=== PATIENT | female | born 1970 | race Caucasian/White ===

== ENCOUNTER → 2020-01-11 17:44 | Outpatient (CLI) | payer BC, SELFPAY ==
--- NOTE | ~2020-01-11 | MM_ITS ---
EXAMINATION: MM screening chelsy BI w tonja HISTORY: Screening mammogram TECHNIQUE: Craniocaudal and mediolateral oblique 3-D tomosynthesis images were obtained and synthetic 2-D images were generated. CAD analysis was submitted and interpreted. COMPARISON: 01/13/2017 diagnostic left digital mammogram and complete left breast ultrasound 11/29/2016 bilateral digital screening mammogram BREAST PARENCHYMAL COMPOSITION: There are scattered areas of fibroglandular density. FINDINGS: There is no evidence of suspicious mass, calcification, or architectural distortion to sugg est malignancy in either breast. There has been no suspicious interval change. IMPRESSION: 1. No mammographic evidence of malignancy. 2. Recommend routine screening mammography in one year. BI-RADS Category 1: Negative Reviewed, dictated and finalized at location A. R SAW OPERATOR
== END ==
PROVIDERS: PCP Family Medicine; Visit Provider Family Medicine
DX: Z12.31 Encounter for screening mammogram for malignant neoplasm of breast (principal)
CPT/HCPCS: 77063; 77067

== ENCOUNTER → 2020-01-14 11:43 | Outpatient (CLI) | payer BC, SELFPAY ==
--- NOTE | ~2020-01-14 | US_ITS ---
EXAMINATION: US pelvic complete w TV DATE: 01/14/2020 12:15 INDICATION: Enlarged uterus. TECHNIQUE: Multiple transabdominal and transvaginal sonographic images of the pelvis were obtained. COMPARISON: None. FINDINGS: TRANSABDOMINAL ULTRASOUND: The uterus measures 17.1 x 10.9 x 9.9 cm. There is no free fluid in the pelvis. TRANSVAGINAL ULTRASOUND: The endometrial complex measures 1.1 cm in thickness. There is a 8.9 x 10.3 x 9.6 cm heterogeneous is oechoic mass in the uterus. The right ovary measures 2.9 x 2.2 x 2.6 cm. The left ovary measures 2.4 x 1.7 x 1.8 cm. IMPRESSION: 1. 10.3 cm mass in the uterus, consistent with a fibroid. Reviewed, dictated and finalized at location A. ENSARY TECHNICIAN
== END ==
PROVIDERS: PCP Family Medicine; Visit Provider Family Medicine
DX: N85.2 Hypertrophy of uterus (principal)
CPT/HCPCS: 76830; 76856

== ENCOUNTER 2021-07-11 17:13 | Outpatient (CLI) | payer BC, SELFPAY ==
--- NOTE | ~2021-07-11 | XR_ITS ---
EXAMINATION: XR ribs RT 2V w CXR 2V DATE: 07/11/2021 17:31 INDICATION: Costochondral junction syndrome. TECHNIQUE: PA and lateral of the chest and 3 views of the right ribs were obtained. COMPARISON: None FINDINGS: No rib fractures identified. Lungs are clear with no focal airspace opacities, pulmonary edema, pleur al effusion or pneumothorax. Amplatz type ASD closure device projects over the heart. Cholecystectomy clips in right upper quadrant. IMPRESSION: 1. No rib fracture or acute cardiopulmonary disease. Reviewed, dictated and finalized at location A.
== END 2021-07-11 17:14 | disposition home or self-care (01) ==
LOC: ANHIMG 17:15
PROVIDERS: PCP Family Medicine; Visit Provider Family Medicine
DX: M94.0 Chondrocostal junction syndrome [Tietze] (principal)
CPT/HCPCS: 71046; 71100

== ENCOUNTER 2021-07-25 16:25 | Outpatient (CLI) | payer BC, SELFPAY ==
--- NOTE | ~2021-07-25 | MM_ITS ---
EXAMINATION: MM screening chelsy BI w tonja HISTORY: Screening mammogram, family history of breast cancer in her mother. TECHNIQUE: Craniocaudal and mediolateral oblique 3-D tomosynthesis images were obtained and synthetic 2-D images were generated. CAD analysis was submitted and interpreted. COMPARISON: 01/11/2020, 01/13/2017, 11/29/2016 BREAST PARENCHYMAL COMPOSITION: There are scattered areas of fibroglandular density. FINDINGS: There is no evidence of suspicious mass, calcification, or architectural distortion to sugg est malignancy in either breast. There has been no suspicious interval change. IMPRESSION: 1. No mammographic evidence of malignancy. 2. Recommend routine screening mammography in one year. BI-RADS Category 1: Negative Reviewed, dictated and finalized at location A.
== END 2021-07-25 16:26 | disposition home or self-care (01) ==
PROVIDERS: PCP Family Medicine; Visit Provider Family Medicine
DX: Z12.31 Encounter for screening mammogram for malignant neoplasm of breast (principal)
CPT/HCPCS: 77063; 77067

== ENCOUNTER 2022-01-28 00:27 | Day surgery (SDC) | payer OTHER, SELFPAY ==
[2022-01-15 13:53] VITALS: BMI 27.8
[2022-01-28 11:47] VITALS: BP 130/90; PULSE 79; RESP 18; TEMP 36.7; O2SAT 100; BMI 27.4
[2022-01-28] MEDS: LACTATED RINGERS 1,000 ML 150 ML IV CONT (11:58)
--- NOTE | 2022-01-28 12:24 | WPDANESEPPF ---
Anes - Initial Pre Proc Eval Procedure: Operation Date: 01/28/22 13:00 Proposed Procedures p Screening Colonoscopy - Wong Marmolejo MD Date/Time: 01/28/22 12:24 Surgeon: Wong Marmolejo MD Pre Op Diagnosis: neoplasm screening Patient Data Age: 51 Gender: F Height: 1.68 m Weight: 77.2 kg Last Vital Signs Temp 98.0 F 01/28/22 11:47 Pulse 79 01/28/22 11:47 Resp 18 01/28/22 11:47 BP 130/90 01/28/22 11:47 Pulse Ox 100 01/28/22 11:47 Allergies Allergy/AdvReac Type Severity Reaction Status Date / Time Penicillins Allergy Unknown UNKNOWN Verified 01/28/22 11:45 REACTION A CHILD Home Medications Medication Instructions Recorded Confirmed Type aspirin 81 mg tablet,delayed 81 mg PO DAILY 01/11/20 01/15/22 History release omeprazole 40 mg capsule,delayed 40 mg PO DAILY 05/09/20 01/15/22 History release Patient hx anesthesia problems: none Family hx anesthesia problems: none Results Review: All pre-operative results and documents have been reviewed as part of the pre-operative evaluation. [facility] Past Medical History Medical History (Updated 01/28/22 @ 12:25 by Freedom Deutsch MD) Bulky or enlarged uterus Cerebrovascular accident (CVA) occipital region; has some blind spot right eye Fibroid GERD without esophagitis History of cold sores Surgical History Surgical History (Updated 07/11/21 @ 09:44 by Jeana Wilburn MD) H/O: hysterectomy fibroid History of cholecystectomy Status post patent foramen ovale closure Family History Family History Father Family history of malignant neoplasm Patient's father is Sibling Family history of diabetes mellitus in first degree relative Diabetes mellitus Patient's sister is , Onset Age: 27 Mother Family history of malignant neoplasm of breast in first degree relative Family history of breast disorder Other Family history of allergic disorder Family history of cardiovascular disease Family history of malignant neoplasm of breast Social History Social History (Updated 09/06/21 @ 14:05 by Mayuri Davis [facility]) Alcohol intake: never Spiritual care concerns: No Anes - Eval Final PreProcedure Day of Procedure 01/28/22 12:24 Patient weight: obese Heart: regular rate and rhythm Lungs: clear to auscultation Airway: Mallampati scale class II Neurological: alert and oriented Last oral intake: >/= 8 hours ASA classification: II Emergent: no Anesthetic plan: proceed Anesthesia type and monitoring: general GIVS and standard monitoring Results Review: All pre-operative results and documents have been reviewed as part of the pre-operative evaluation. Informed Consent: The patient's anesthetic plan and its attendant risks and benefits were discussed with the patient/family/POA. Questions were solicited and answers provided to the satisfaction of the patient/family/POA.
--- NOTE | 2022-01-28 12:46 | PM.HPGS ---
History of Present Illness History of Present Illness Consent: Risks, benefits, and alternatives have been discussed and questions answered. Patient agrees to proceed with procedure. Chief complaint: neoplasm screening Narrative: Shankar Palomares is a 51 year old female here for first screening colonoscopy Review of Systems Constitutional: Constitutional: Denies headache(s) and Denies weakness Eyes: Eyes: Denies blurry vision ENT: Reports Normal hearing present, Denies headache(s) and Denies neck pain Cardiovascular: Cardiovascular: Denies chest pain and Denies dyspnea Respiratory: Respiratory: Denies dyspnea Gastrointestinal: Gastrointestinal: Reports no additional gastrointestinal complaints Genitourinary: Genitourinary: Denies dysuria Musculoskeletal: Musculoskeletal: Denies neck pain Integumentary/Breasts: Skin/Breast: Denies dry skin Neurologic: Reports Normal hearing present, Denies headache(s) and Denies weakness Psychiatric: Psychiatric: Denies anxiety Endocrine: Endocrine: Denies change in body appearance Hematologic/Lymphatic: Hematologic/Lymphatic: Denies easy bleeding Allergic/Immunologic: Allergic/Immunologic: Denies urticaria PMF Past Medical History Medical History (Updated 01/28/22 @ 12:46 by Wong Marmolejo MD) Bulky or enlarged uterus Cerebrovascular accident (CVA) occipital region; has some blind spot right eye Colon cancer screening Fibroid GERD without esophagitis History of cold sores Surgical History Surgical History (Updated 07/11/21 @ 09:44 by Jeana Wilburn MD) H/O: hysterectomy fibroid History of cholecystectomy Status post patent foramen ovale closure Family History Family History Father Family history of malignant neoplasm Patient's father is Sibling Family history of diabetes mellitus in first degree relative Diabetes mellitus Patient's sister is , Onset Age: 27 Mother Family history of malignant neoplasm of breast in first degree relative Family history of breast disorder Other Family history of allergic disorder Family history of cardiovascular disease Family history of malignant neoplasm of breast Social History Social History (Updated 09/06/21 @ 14:05 by Mayuri Davis [facility]) Alcohol intake: never Spiritual care concerns: No Meds Home Medications and Allergies Home Medications Medication Instructions Recorded Confirmed Type aspirin 81 mg tablet,delayed 81 mg PO DAILY 01/11/20 01/15/22 History release omeprazole 40 mg capsule,delayed 40 mg PO DAILY 05/09/20 01/15/22 History release Allergies Allergy/AdvReac Type Severity Reaction Status Date / Time Penicillins Allergy Unknown UNKNOWN Verified 01/28/22 11:45 REACTION A CHILD Vital Signs Vital Signs - 24 hr 01/28/22 11:47 Temperature 98.0 F Pulse Rate 79 Respiratory Rate 18 Blood Pressure 130/90 Pulse Oximetry 100 Exam Const: General: comfortable and no acute distress HENMT: General nose exam: Normal nares present Eyes: General: appearance normal, both eyes and all related structures Neck: Neck: no JVD Resp: Auscultation: clear to auscultation bilaterally Cardio: Rate: regular rate Rhythm: regular rhythm GI: Inspection: non-distended GI Palp: Yes Soft to palpation Skin: General skin exam: normal color Neuro: General: gait normal Speech: normal speech Extrem: General: normal to inspection Psych: Mental Status: mental status grossly normal Assessment and Plan Assessment and plan (1) Colon cancer screening: Code(s): Z12.11 - Encounter for screening for malignant neoplasm of colon Status: Acute Assessment and Plan: colonoscopy
[2022-01-28 13:04] VITALS: BP 116/72; PULSE 67; RESP 17; O2SAT 100
[2022-01-28 13:14] VITALS: BP 122/76; PULSE 57; RESP 14; O2SAT 100
[2022-01-28 13:24] VITALS: BP 116/80; PULSE 55; RESP 19; O2SAT 100
== END 2022-01-28 13:38 | disposition home or self-care (01) ==
PROVIDERS: PCP Family Medicine; Visit Provider Internal Medicine Gastroenterology
PROC: 0DJD8ZZ Inspection of Lower Intestinal Tract, Via Natural or Artificial Opening Endoscopic (ICD-10-PCS; CPT 45378; principal; 2022-01-28 13:00)
DX: Z12.11 Encounter for screening for malignant neoplasm of colon (principal); D12.0 Benign neoplasm of cecum; K63.5 Polyp of colon; K64.8 Other hemorrhoids; K21.9 Gastro-esophageal reflux disease without esophagitis; I69.398 Other sequelae of cerebral infarction; Z90.49 Acquired absence of other specified parts of digestive tract; Z79.82 Long term (current) use of aspirin
CPT/HCPCS: 45380; 45385; 88305; J2704; J7120

== ENCOUNTER 2022-09-04 11:23 | Outpatient (CLI) | payer OTHER, SELFPAY | END 2022-09-04 11:24 | disposition home or self-care (01) | LOC: ANHGOSHLAB 11:25 | PROVIDERS: PCP Family Medicine; Visit Provider Family Medicine | DX: E06.3 Autoimmune thyroiditis (principal); E66.3 Overweight; K21.00 Gastro-esophageal reflux disease with esophagitis, without bleeding; Z79.899 Other long term (current) drug therapy | CPT/HCPCS: 99199; 36415 ==

== ENCOUNTER 2023-03-21 08:41 | Outpatient (CLI) | payer OTHER, SELFPAY ==
--- NOTE | ~2023-03-21 | MM_ITS ---
EXAMINATION: MM screening chelsy BI w tonja HISTORY: Screening mammogram, family history of breast cancer in her mother. TECHNIQUE: Craniocaudal and mediolateral oblique 3-D tomosynthesis images were obtained and synthetic 2-D images were generated. CAD analysis was submitted and interpreted. COMPARISON: 07/25/2021, 01/11/2020, 01/13/2017, 11/29/2016 BREAST PARENCHYMAL COMPOSITION: There are scattered areas of fibroglandular density. FINDINGS: No suspicious mass, calcification, or architectural distortion are identified in either everton ast to suggest malignancy. There has been no suspicious interval change. IMPRESSION: 1. No mammographic evidence of malignancy. 2. Recommend routine screening mammography in one year. BI-RADS Category 1: Negative Reviewed, dictated and finalized at location A.
== END 2023-03-21 08:42 | disposition home or self-care (01) ==
PROVIDERS: PCP Family Medicine; Visit Provider Family Medicine
DX: Z12.31 Encounter for screening mammogram for malignant neoplasm of breast (principal)
CPT/HCPCS: 77063; 77067

== ENCOUNTER 2023-10-01 11:18 | Outpatient (CLI) | payer OTHER, SELFPAY ==
[2023-10-02 15:20] LABS: Kit Draw Collected
== END 2023-10-01 11:19 | disposition home or self-care (01) ==
LOC: ANHGOSHLAB 11:19
PROVIDERS: PCP Family Medicine; Visit Provider Family Medicine
DX: Z00.00 Encounter for general adult medical examination without abnormal findings (principal); Z79.899 Other long term (current) drug therapy
CPT/HCPCS: 36415

== ENCOUNTER 2024-10-14 09:51 | Outpatient (CLI) | payer OTHER, SELFPAY ==
[2024-10-15 14:55] LABS: Kit Draw Collected
== END 2024-10-14 09:52 | disposition home or self-care (01) ==
LOC: ANHGOSHLAB 09:53
PROVIDERS: PCP Family Medicine; Visit Provider Family Medicine
DX: E06.3 Autoimmune thyroiditis (principal); K21.00 Gastro-esophageal reflux disease with esophagitis, without bleeding; Z79.899 Other long term (current) drug therapy
CPT/HCPCS: 36415

== ENCOUNTER 2025-01-05 10:08 | Outpatient (CLI) | payer OTHER, SELFPAY ==
--- OUTSIDE RECORDS SUMMARY | 2025-01-05 11:13 | XMS_ITS | Referral Summary ---
Author Organization [facility] Address [address] [place] [address] Care Team Providers Care Fill Plant Operator Name Role Phone Jeana Wilburn MD Primary Care Provider [phone] Source Comments [facility],non-owned Affiliates and Associated Physician Practices is amultiple site organization consisting of ambulatory clinics and hospital sitesin [place] and [place]. This disclosure is being madepursuant to the Care Everywhere program and may not contain all information available regarding this patient. Last updated 18.[facility] Allergies Active Allergy Reactions Criticality Noted Date Comments Penicillins Urticaria High 08/08/2017 Medications * Be aware that medications may not be up to date on this document. Alwaysverify current medications with the patient. Medication Sig Dispensed Refills Start Date End Date Status aspirin EC (ECOTRIN) 81 MG tablet Take 81 mg by mouth once daily Active omeprazole (PRILOSEC) 40 MG capsule Take 40 mg by mouth daily before breakfast Active Active Problems Problem Noted Date Diagnosed Date Visual aura 10/14/2018 Migraine with visual aura 10/14/2018 Vision loss 10/03/2018 H/O ischemic left SPINNER FIXER stroke 07/13/2018 PFO (patent foramen ovale) 09/05/2017 S/P cholecystectomy 09/05/2017 Hemianopia 08/08/2017 Ischemic stroke 08/08/2017 Fibroid S/P hysterectomy Immunizations Name Administration Dates Next Due INFLUENZA VACCINE 10/10/2020 INFLUENZA VACCINE, CELL CULT URE, QUADR. (FLUCELVAX QUADRIVALENT; 6MO+) (CCIIV4) 09/16/2018 INFLUENZA VACCINE, QUADR. (F LUZONE; FLULAVAL; FLUARIX; AFLURIA QUADRIVALENT; 6MO+), 0.5 ML (IIV4) 10/09/2019,10/13/2016 Social History Tobacco Use Types Packs/Day Years Used Date Smoking Tobacco: Never Smokeless Tobacco: Never Alcohol Use Standard Drinks/Week Comments Yes 0 (1 standard drink = 0.6 oz pur e alcohol) Sex and Gender Information Value Date Recorded Sex Assigned at Not on file Gender Identity Not on file Sexual Orientation Not on file Last Filed Vital Signs Vital Sign Reading Time Taken Comments Blood Pressure 126/84 07/17/2020 1:18 PM CDT Pulse 61 06/01/2020 10:00 AM CDT Temperature 37.1 ??C (98.7 ??F) 06/01/2020 10:00 AM C DT Respiratory Rate 18 06/01/2020 10:00 AM CDT Oxygen Saturation 100% 06/01/2020 10:00 AM CDT Inhaled Oxygen Concentration - - Weight 74.8 kg (165 lb) 07/17/2020 1:18 PM CDT Height 167.6 cm (5' 6 ) 06/15/2020 4:17 PM CDT Body Mass Index 26.63 06/15/2020 4:17 PM CDT Plan of Treatment Not on file Procedures Procedure Name Priority Date/Time Associated Diagnosis Comments LIPID PROFILE STAT 10/04/2018 2:53 AM CONCRETE MIXING TRUCK DRIVER Vision loss BASIC METABOLIC PANEL (CALCIUM TOTAL) STAT 10/03/2018 7:43 PM CDT from Last 3 Months or Most Recently Relevant to Health Maintenance Results * LIPID PROFILE (10/04/2018 2:53 AM CONCRETE MIXING TRUCK DRIVER) Cholesterol Total 164 <200 mg/dL 10/04/2018 3:18 AM [facility] HDL 54 >40 mg/dL 10/04/2018 3:18 AM [facility] Comment: ATP III Classification of HDL Cholesterol: ? <40 mg/dL: ??Considered a major risk factor. ? >60 mg/dL: ??Considered a negative risk factor. ? LDL Calculated 94 <100 mg/dL 10/04/2018 3:18 AM [facility] Comment: ATP III Classification of LDL Cholesterol: ?<100 mg/dL: ??Optimal ? 100 - 129 mg/dL: ??Near Optimal/Above Optimal ? 130 - 159 mg/dL: ??Borderline High ? 160 - 189 mg/dL: ??High ?>190 mg/dL: ??Very High ? Triglycerides 82 <150 mg/dL 10/04/2018 3:18 AM [facility] Comment: ATP III Classification of Triglycerides: ?<150 mg/dL: ??Normal ? 150 - 199 mg/dL: ??Borderline High ? 200 - 400 mg/dL: ??High ?>500 mg/dL: ??Very High Blood BLOOD SPECIMEN / Unknown Venipuncture / Unknown 10/04/2018 2:53 AM CONCRETE MIXING TRUCK DRIVER 10/04/2018 2:56 AM CONCRETE MIXING TRUCK DRIVER Bulmaro Orantes MD LAB - CHEMISTRY O RDERABLES Performing Organization Address [facility]/State/[facility] Co de Phone Number [address] [phone] * (ABNORMAL) BASIC METABOLIC PANEL (CALCIUM TOTAL) (10/03/2018 7:43 PM CDT) BUN 16 7 - 26 mg/dL 10/03/2018 8:15 PM CDT [facility] Creatinine 1.0 0.6 - 1.2 mg/dL 10/03/2018 8:15 PM CDT [facility] Sodium 139 136 - 145 mmol/L 10/03/2018 8:15 PM CDT [facility] Potassium 3.6 3.5 - 4.5 mmol/L 10/03/2018 8:15 PM CDT [facility] Chloride 104 98 - 107 mmol/L 10/03/2018 8:15 PM [facility] CO2 25 22 - 29 mmol/L 10/03/2018 8:15 PM [facility] Glucose 88 70 - 115 mg/dL 10/03/2018 8:15 PM [facility] Calcium 9.1 8.4 - 10.2 mg/dL 10/03/2018 8:15 PM [facility] Anion Gap 14 8 - 18 10/03/2018 8:15 PM [facility] BUN/Creatinine Ratio 16 7 - 23 10/03/2018 8:15 PM [facility] Osmolality Calculated 289 270 - 300 mOsm/kg 10/03/2018 8:15 PM [facility] eGFR 59(L) >60 mL/min/1.7 3 m2 10/03/2018 8:15 PM [facility] Blood BLOOD SPECIMEN / Unknown Venipuncture / Unknown 10/03/2018 7:43 PM CDT 10/03/2018 7:50 PM CDT Marty Shultz MD LAB - CHEMISTRY INESSA SERRANO [facility] Organization Address City/State/[facility] Co de Phone Number [facility] [address] [phone] from Last 3 Months or Most Recently Relevant to Health Maintenance Advance Directives * Full Code (Latest Code Status on File) Date Activated Date Inactivated Comments 10/04/2018 2:13 AM 10/04/2018 12:33 PM * Full Code Date Activated Date Inactivated Comments 10/03/2018 9:27 PM 10/04/2018 2:13 AM Care Teams Fill Plant Operator Relationship Specialty Start Date End Date Jeana Wilburn MD [address] [place] [address] PCP - General 03/19/18
--- OUTSIDE RECORDS SUMMARY | 2025-01-05 11:14 | XMS_ITS | Encounter Summary ---
Author Organization [facility] Address [address] [place] [address] Phone Care Team Providers Care Dispatcher Maintenance Name Role Phone Jeana Wilburn MD Primary Care Provider + Encounter Details Date Type Department Care Team (Late st Contact Info) Description 10/30/2018 Ophth Exam [facility] Ophthalmology [address] [place] [address] 1[address] [place] [id number] Radha Benítez MD [address] [place], [place] [id number] Social History Tobacco Use Types Packs/Day Years Used Date Smoking Tobacco: Never Assessed Comments Unknown Sex and Gender Information Value Date Recorded Sex Assigned at Not on file Legal Sex Female 3:31 PM FIBERGLASS AUTO BODY REPAIRER Gender Identity Female 10/10/2022 10:08 AM FIBERGLASS AUTO BODY REPAIRER Sexual Orientation Straight 10/10/2022 10 :08 AM FIBERGLASS AUTO BODY REPAIRER documented as of this encounter Plan of Treatment Not on file documented as of this encounter Visit Diagnoses Not on filedocumented in this encounter Eye Exam Visual Acuity (Snellen - Linear) Right eye Left eye Near cc 20/20 20/20 Tonometry (Tonopen, 5:14 PM) Right eye Left eye Pressure 15 16 Pupils Dark Light APD Right eye 4 2 None Left eye 4 2 None Visual Head Right eye Left eye Full Full Unreliable and inconsistent testing, tested multiple times, full grossly Extraocular Movement Right eye Left eye Full Full Neuro/Psych Oriented x3: Yes Mood/Affect: Normal Dilation Both eyes: 1.0% Mydriacyl, 2 .5% Phenylephrine, 1.0% Cyclogyl @ 5:15 PM External Exam Right eye Left eye External Normal Normal Slit Lamp Exam Right eye Left eye Lids/Lashes Normal Normal Conjunctiva/Sclera White and quiet White and mariusz et Cornea Clear Clear Anterior Chamber Deep and quiet Deep and quiet Iris Round and reactive Round and bob ctive Lens Clear Clear Vitreous Normal Normal Fundus Exam Right eye Left eye Disc Normal Normal C/D Ratio 0.15 0.15 Macula Normal Normal Vessels Normal Normal Periphery Normal Normal Care Teams Dispatcher Maintenance Relationship Specialty Start Date End Date Jeana Wilburn MD PCP - General 12/10/17 documented as of this encounter
--- OUTSIDE RECORDS SUMMARY | 2025-01-05 11:14 | XMS_ITS | Clinical Summary ---
Author Organization [facility] Address [address] [place] [address] Care Team Providers Care Rough Rib Grader Name Role Phone Jeana Wilburn MD Primary Care Provider + Allergies Active Allergy Reactions Criticality Noted Date Comments Penicillins Urticaria High 08/08/2017 Medications aspirin 81 mg chewable tablet Take 81 mg by mouth. 7 Active omeprazole (PriLOSEC) 20 mg capsule Take 20 mg by mouth. Active mefloquine (LARIAM) 250 mg tablet TAKE ONE TABLET BY MOUTH ON THE SAME DAY EACH WEEK. TO START ONE WEEK BEFORE EXPOSURE, DURING TIME IN AREA, AND THEN FOR FOUR WEEKS AFTER LEAVING 2 Active fluticasone propionate (FLONASE) 50 mcg/actuation nasal spray Administer 1 spray into each nostril daily Active Active Problems Problem Noted Date Diagnosed Date Gastro-esophageal reflux dis ease with esophagitis, without bleeding 10/11/2022 Overview (10/11/2022): Added automatically from request for surgery [id number] Surgical History Surgery Date Site/Laterality Comments HYSTERECTOMY 12/01/2019 - 11/30/2020 CHOLECYSTECTOMY 12/01/2016 - 11/30/2017 PATENT FORAMEN OVALE CLOSURE 12/01/2016 - 11/30/2017 COLONOSCOPY POLYPECTOMY Medical History Medical History Date Comments Stroke (HCC) GERD (gastroesophageal reflux disease) Migraines Fibroids PFO with atrial septal aneurysm 2017 Sleep apnea Cholelithiasis Colon polyp Dysphagia Septal defect, heart Hypothyroidism Family History Medical History Relation Name Comments Leukemia Father Esophageal cancer Father's Brother Breast cancer Mother Diabetes Sister Relation Name Status Comments Father Father's Brother Mother Sister Social History Tobacco Use Types Packs/Day Years Used Date Smoking Tobacco: Never Tobacco Cessation:Counseling Given: Not Answered AUDIT-C Answer Date Recorded Q1: How often do you have a drink containing alc ohol? Never 10/11/2022 Average Number of Drinks Not on file 022 Frequency of Binge Drinking Not on file 10/01 Personal Safety Answer Date Recorded Getting School Help Needed Denies 11/14 Comments No Sex and Gender Information Value Date Recorded Sex Assigned at Not on file Legal Sex Female 3:31 PM LOSS PREVENTION ANALYST Gender Identity Female 10/10/2022 10:08 AM LOSS PREVENTION ANALYST Sexual Orientation Straight 10/10/2022 10 :08 AM LOSS PREVENTION ANALYST Obstetrics History Last Filed Vital Signs Vital Sign Reading Time Taken Comments Blood Pressure 124/81 12/05/2022 3:12 PM LOSS PREVENTION ANALYST Pulse 63 12/05/2022 3:12 PM LOSS PREVENTION ANALYST Temperature 36.3 ??C (97.3 ??F) 12/05/2022 1:47 PM CS T Respiratory Rate 17 12/05/2022 3:12 PM LOSS PREVENTION ANALYST Oxygen Saturation 100% 12/05/2022 3:12 PM LOSS PREVENTION ANALYST Inhaled Oxygen Concentration - - Weight 83.5 kg (184 lb) 12/05/2022 1:47 PM LOSS PREVENTION ANALYST Height 167.6 cm (5' 6 ) 12/05/2022 1:47 PM LOSS PREVENTION ANALYST Body Mass Index 29.7 12/05/2022 1:47 PM LOSS PREVENTION ANALYST Plan of Treatment Health Maintenance Due Date Last Done Comments Breast Cancer Screening-Mammogram 1971 Colon Cancer Screening-Colonoscopy 1971 Depression Screening 1971 Hepatitis C Screening 1971 DTaP/Tdap/Td Vaccine (1 - Tdap) 1982 Hepatitis B Screening 1989 Regular Well Visit/Exam 18-64 1989 Zoster Vaccine (1 of 2) 2021 Covid-19 Vaccine ( season) 2024 09/24/2021, 01/02/2021, 12/05/2020 Influenza Vaccine (#1) 2024 , 10/10/2020, 10/09/2019, Additional history exists Pneumococcal vaccine <65 Aged Out No longer eligible based on patient's age to complete this topic Insurance [facility] HEALTH BENEFIT PLAN [facility] HEALTH [employer]EFIT PLAN Advance Directives For more information, please contact: [phone] * Full Code (Latest Code Status on File) Date Activated Date Inactivated Comments 12/05/2022 1:36 PM 12/05/2022 7:25 PM Care Teams Rough Rib Grader Relationship Specialty Start Date End Date Jeana Wilburn MD PCP - General 12/10/17
--- OUTSIDE RECORDS SUMMARY | 2025-01-05 11:14 | XMS_ITS | Clinical Summary ---
Author Organization [facility] Address [address] [place] [id number] Care Team Providers Care Public Records Researcher Name Role Phone Unavailable Primary Care Provider Unavailabl e Immunizations Name Administration Dates Next Due MODERNA COVID-19 (12+) MRNA, LNP-S, PF, 100 MCG/ 0.5 ML DOSE 01/02/2021,12/05/2020 Social History Tobacco Use Types Packs/Day Years Used Date Smoking Tobacco: Never Assessed Comments Unknown Sex and Gender Information Value Date Recorded Sex Assigned at Not on file Legal Sex Female 3:16 PM [employer] Gender Identity Not on file Sexual Orientation Not on file Plan of Treatment Health Maintenance Due Date Last Done Comments Cervical Cancer Screening Pa p Smear (Age 30 to 64) Every 3 Years 1971 Colorectal Cancer Screening Colonoscopy (10 Years) 1971 Annual Physical 1974 Hepatitis C 1989 Hepatitis B Vaccines (1 of 3 - 19+ 3-dose series) 1990 Cervical Cancer Screening Pa p with HPV Testing (Age 30 to 64) Every 5 Years 2001 Cervical Cancer Screening wi th HPV 2001 Mammogram Screening 2011 Zoster Vaccines (1 of 2) 2021 COVID-19 Vaccine (2023-2 5 season) 2024 01/02/2021, 12/05/2020 Influenza Adult (#1) 2024 10/10/2020, 09/16/2018 DTaP, Tdap and Td Vaccines ( 2 - Tdap) 11/06/2030 11/06/2020 Meningococcal B Vaccine Aged Out No l onger eligible based on patient's age to complete this topic Meningococcal Vaccine Aged Out No maryse griselda eligible based on patient's age to complete this topic Pneumococcal Vaccine: Pediatrics (0 to 5 Years) and At-Risk Patients (6 to 64 Years) Aged Out No longer eligible b ased on patient's age to complete this topic RSV Immunizations Under 20 Months Aged Out No longer eligible b ased on patient's age to complete this topic
--- OUTSIDE RECORDS SUMMARY | 2025-01-05 11:14 | XMS_ITS | Patient Health Summary ---
Author Organization [facility] Address [address] [place] [address] Care Team Providers Care Tree Faller Name Role Phone Jeana Wilburn MD Primary Care Provider [phone] Note from [facility],non-owned Affiliates and Associated Physician Practices is amultiple site organization consisting of ambulatory clinics and hospital sitesin [place], [place], [place] and [place]. This disclosure is being madepursuant to the Care Everywhere program and may not contain all information available regarding this patient. Last updated 18.[facility] Allergies * Penicillins(Urticaria) -High Criticality Medications * Be aware that medications may not be up to date on this document. Alwaysverify current medications with the patient. * aspirin EC (ECOTRIN) 81 MG tablet Take 81 mg by mouth once daily * omeprazole (PRILOSEC) 40 MG capsule Take 40 mg by mouth daily before breakfast Active Problems Problem Noted Date Diagnosed Date Visual aura 10/14/2018 Migraine with visual aura 10/14/2018 Vision loss 10/03/2018 H/O ischemic left COMMERCIAL CREDIT HEAD stroke 07/13/2018 PFO (patent foramen ovale) 09/05/2017 S/P cholecystectomy 09/05/2017 Hemianopia 08/08/2017 Ischemic stroke 08/08/2017 Fibroid S/P hysterectomy Immunizations * INFLUENZA VACCINE(Given 10/10/2020) * INFLUENZA VACCINE, CELL CULTURE, QUADR. (FLUCELVAX QUADRIVALENT; 6MO+) (CCIIV4)(Given 09/16/2018) * INFLUENZA VACCINE, QUADR. (FLUZONE; FLULAVAL; FLUARIX; AFLURIA QUADRIVALENT; 6MO+), 0.5 ML (IIV4)(Given 10/09/2019, 10/13/2016) Social History Tobacco Use Types Packs/Day Years [...] Mass Index 26.63 06/15/2020 4:17 PM CDT Procedures * APHERESIS/TRANSFUSION ORDER(Performed 06/05/2020) * CARDIAC RHYTHM STRIP ORDER(Performed 06/05/2020) * PATHOLOGY TISSUE EXAM (STL)(Performed 05/31/2020) Performed for Diagnosis unknown * ENDOTRACHEAL TUBE NOTE(Performed 05/31/2020) * LAPAROSCOPIC TOTAL HYSTERECTOMY (TLH)(Performed 05/31/2020) Performed for Diagnosis unknown * HCG URINE QUAL POCT NOTIFICATION(Performed 05/31/2020) Performed for Preop examination * BLOOD TYPE VERIFICATION(Performed 05/31/2020) * HCG URINE QUALITATIVE - POCT (IP) INTERFACED(Performed 05/31/2020) * TYPE + SCREEN PANEL(Performed 05/29/2020) Performed for Pre-op testing * CBC W AUTO DIFFERENTIAL(Performed 05/29/2020) Performed for Pre-op testing * SARS-COV-2 (COVID-19) IN HOUSE(Performed 05/29/2020) Performed for Pre-op testing * OPH VISUAL FIELD TEST SLU(Performed 09/08/2019) Performed for H/O ischemic left COMMERCIAL CREDIT HEAD stroke * OPH VISUAL FIELD TEST SLU(Performed 03/05/2019) Performed for H/O ischemic left COMMERCIAL CREDIT HEAD stroke * OPH OCT TEST [facility]U(Performed 10/07/2018) Performed for Hemianopia, homonymous, right * OPH VISUAL FIELD TEST SLU(Performed 10/07/2018) Performed for Hemianopia, homonymous, right * MRI BRAIN WO CONTRAST(Performed 10/04/2018) Performed for Vision loss * LIPID PROFILE(Performed 10/04/2018) Performed for Vision loss * PT EVAL AND TREAT(Performed 10/04/2018) Performed for Vision loss * OT EVAL AND TREAT(Performed 10/04/2018) Performed for Vision loss * HCG URINE QUALITATIVE - POINT OF CARE(Performed 10/03/2018) * HEMOGLOBIN A1C(Performed 10/03/2018) Performed for Vision loss * BASIC METABOLIC PANEL (CALCIUM TOTAL)(Performed 10/03/2018) * CBC W AUTO DIFFERENTIAL(Performed 10/03/2018) * CT HEAD WO CONTRAST(Performed 10/03/2018) Performed for Vision loss * LUPUS ANTICOAGULANT PANEL W RFLX(Performed 04/09/2018) Performed for Ischemic stroke (HCC) * CARDIOLIPIN ANTIBODY IGG/IGM PANEL(Performed 04/09/2018) Performed for Ischemic stroke (HCC) * ECHO 2D ONLY WO COLOR OR DOPPLER(Performed 11/20/2017) * CCL PFO CLOSURE(Performed 10/09/2017) * ECHO LIMITED OR FOLLOWUP(Performed 10/09/2017) * EKG 12-LEAD(Performed 10/09/2017) * BASIC METABOLIC PANEL (CALCIUM TOTAL)(Performed 09/29/2017) * PT-INR SLH(Performed 09/29/2017) * CBC W AUTO DIFFERENTIAL(Performed 09/29/2017) * CBC W AUTO DIFFERENTIAL(Performed 09/29/2017) * EVENT MONITOR(Performed 09/26/2017) * PHOSPHORUS BLOOD(Performed 08/11/2017) * MAGNESIUM BLOOD(Performed 08/11/2017) * BASIC METABOLIC PANEL (CALCIUM TOTAL)(Performed 08/11/2017) * PHOSPHORUS BLOOD(Performed 08/10/2017) * MAGNESIUM BLOOD(Performed 08/10/2017) * BASIC METABOLIC PANEL (CALCIUM TOTAL)(Performed 08/10/2017) * PROTHROMBIN [id number] PANEL(Performed 08/09/2017) * FACTOR V LEIDEN MUTATION PANEL(Performed 08/09/2017) * PT-INR SLH(Performed 08/09/2017) * PTT SLH(Performed 08/09/2017) * PROTEIN S ANTIGEN(Performed 08/09/2017) * PROTEIN C ANTIGEN(Performed 08/09/2017) * ANTITHROMBIN III ANTIGEN(Performed 08/09/2017) * T4 FREE(Performed 08/09/2017) * TSH(Performed 08/09/2017) * CK + CKMB PANEL(Performed 08/09/2017) * TROPONIN I(Performed 08/09/2017) * BASIC METABOLIC PANEL (CALCIUM TOTAL)(Performed 08/09/2017) * PHOSPHORUS BLOOD(Performed 08/09/2017) * MAGNESIUM BLOOD(Performed 08/09/2017) * CBC W/O DIFFERENTIAL(Performed 08/09/2017) * HEMOGLOBIN A1C(Performed 08/08/2017) * CK + CKMB PANEL(Performed 08/08/2017) * TROPONIN I(Performed 08/08/2017) * LIPID PROFILE(Performed 08/08/2017) * PHOSPHORUS BLOOD(Performed 08/08/2017) * MAGNESIUM BLOOD(Performed 08/08/2017) * MRI BRAIN WWO CONTRAST(Performed 08/08/2017) * CT ANGIO BRAIN AND NECK(Performed 08/08/2017) * PT-INR SLH(Performed 08/08/2017) * PTT SLH(Performed 08/08/2017) * CT HEAD WO CONTRAST(Performed 08/08/2017) * ERYTHROCYTE SEDIMENTATION RATE(Performed 08/08/2017) * C-REACTIVE PROTEIN(Performed 08/08/2017) * BASIC METABOLIC PANEL (CALCIUM TOTAL)(Performed 08/08/2017) * CBC W AUTO DIFFERENTIAL(Performed 08/08/2017) * CBC W AUTO DIFFERENTIAL(Performed 08/08/2017) * ECHO COMPLETE(Performed 08/08/2017) * EKG 12-LEAD(Performed 08/08/2017) * LIPID PROFILE(Performed 06/02/2017) * BASIC METABOLIC PANEL (CALCIUM TOTAL)(Performed 06/02/2017) Results * APHERESIS/TRANSFUSION ORDER (06/05/2020 1:09 PM CDT) Narrative 06/05/2020 1:09 PM CDT Ordered by an unspecified provider. Scanned Document NURSING - VITAL SIGN S AND ASSESSMENT * CARDIAC RHYTHM STRIP ORDER (06/05/2020 1:09 PM CDT) Narrative 06/05/2020 1:09 PM CDT Ordered by an unspecified provider. Scanned Document CARDIAC SERVICES ORD ERABLES * GROSS + MICRO EXAM (STL) (05/31/2020 2:36 PM CDT) Case Report Surgical Pathology Report ? Case: [id number] ? Authorizing Provider: ??Alicia Winchester, Stacy: ? 05/31/2020 02:36 PM ? MD ? Ordering Location: ? [facility] ? Received: ?05/31/2020 03:29 PM ? Pathologist: ? Aminta Dueñas MD ? Specimens: ?? A) - Uterus w Tubes, uterus, cervix, bilateral tubes ? B) - Ligament, left uterosacral ligament ? 06/06/2020 2:00 PM [facility] Final Diagnosis Uterus and bilateral Fallopian tubes, hysterectomy and salpingectomy (A) - Secretory endometrium - Leiomyomata (largest 2.5 cm) - Cervix with no histopathologic abnormality - Bilateral Fallopian tubes with focal acute inflammation Peritoneum, left uterosacral ligament, biopsy (B) - Endometriosis 06/06/2020 2:00 PM [facility] Clinical History The patient is a 49-year-old woman with no clinical history provided. Operative procedure: hysterectomy with bilateral salpingectomy, morcellation. 06/06/2020 2:00 PM [facility] Gross Description The specimen is received in two containers fixed in formalin for gross and microscopic examination. Each container is labeled with the patient's name, Shankar Palomares. Specimen A, uterus, cervix, bilateral tubes, consists of a 910 g, morcellated uterus (21.5 x 13.5 x 8.0 cm). The cervix measures 4.5 x 3.5 cm. The ectocervix is white, smooth, and glistening. The cervical os is slit like and measures 1.5 cm. A portion of the endometrial cavity is identified. The endometrium measures 0.1 cm. There are several areas of bulging, whorled tissue potentially representing leiomyomata, ranging in greatest dimension from 0.9 to 2.5 cm. The specimen is sectioned, revealing no areas of hemorrhage or necrosis. Also received in the same container are two unoriented fallopian tubes measuring 4.0 x 1.0 cm and 3.5 x 0.5 cm respectively. The first fallopian tube has a 0.4 cm cyst. Sections are submitted as follows: A1, A2 - cervix A3 - endomyometrium A4-A5 - leiomyomata A6 - fallopian tube with cyst A7 - fallopian tube Specimen B, ligament, consists of a 1.2 x 0.4 x 0.2 cm portion of fibrous tissue submitted in toto as cassette B1. Luna 06/06/2020 2:00 PM [facility] Microscopic Description Microscopic examination substantiates the above diagnosis. 06/06/2020 2:00 PM CDT [facility] Disclaimer All histochemical and/or immunohistochemical results are interpreted with controls that demonstrate appropriate staining reactions before reporting results. Note on use of immunocytochemistry reagents: This test was developed and its performance characteristic determined by [facility], Department of Laboratory Medicine. It has not been cleared or approved by the U.S. Food and Drug Administration (FDA). The FDA has determined that such clearance or approval is not necessary. The test is used for clinical purpose. It should not be regarded as investigational or for research. This laboratory is certified to perform high complexity testing. The performance characteristics of the IHC/TODD assays have been validated on formalin-fixed paraffin embedded tissues only. The assays have not been validated on decalcified tissues. Results should be interpreted with caution. 06/06/2020 2:00 PM CDT [facility] Embedded Images 06/06/2020 2:00 PM CDT [facility] Pathology/Cytology UTERUS AND FALLOPIAN TUBES, CS / Unknown 05/31/2020 2:36 PM CDT 05/31/2020 3:29 PM CDT Comment:Pre-op diagnosis: Diagnosis unknown [R69] Miscellaneous samples (specimen) ENTIRE LIGAMENT / Unknown 05/31/2020 3:08 PM CDT 05/31/2020 3:29 PM CDT Comment:Pre-op diagnosis: Diagnosis unknown [R69] Alicia Winchester MD LAB - PATHOL OGY/CYTOLOGY ORDERABLES Performing Organization Address [facility]/State/[facility] Co de Phone Number [facility] [address] [place] [address] * ETT LINE PERFORMABLE (05/31/2020 11:31 AM CDT) Narrative Saturnino Nash MD - 05/31/2020 11:31 AM CDT Morales Parikh APRN-RADHA ? 05/31/2020 11:31 AM Endotracheal Tube Placement: ? Patient Location: OR. Intubation Event Date/Time: ??05/31/2020 11:15 AM Procedure: intubation ([id number]). Procedure Section: ?? Sedation: IV sedation. Indications for Airway Management: ??airway protection Induction: standard IV Patient Position: ??sniffing Mask Ventilation: easy. Blade Type: Otis Blade Size: 3 Laryngoscopy View: grade 2 (partial cords) Tube: endotracheal tube Placement: oral Tube type: cuff - inflated Tube Size (FR): 7 Depth of Insertion (CM): 19 Measured From: gums Cuff volume (mL): ??6 Cuff Inflated With: air Number of Attempts: 1. Placement Verified By: direct visualization, bilateral breath sounds, chest auscultation, CO2 monitor and CO2 detector Tube secured with: ??adhesive tape. Difficult Airway? ??No. Procedure Start Time: 05/31/2020 11:15 AM. Staff Section ?? Anesthesia Provider: Morales Parikh APRN-CRNA, Performed the procedure Saturnino Nash MD GENERAL ANESTHESIA ORDERABLES * HCG URINE QUAL POCT NOTIFICATION (05/31/2020 10:30 AM CDT) Comment Notification Label Only - See Separate Report 05/31/2020 10:30 AM CDT [facility] Urine URINE / Unknown 0 9:14 AM CDT Saturnino Nash MD LAB - URINALYSIS O RDERABLES Performing Organization Address City/[facility]/ZIP Co de Phone Number [facility] [address] [place] [address] * BLOOD TYPE VERIFICATION (05/31/2020 9:43 AM CDT) ABO Rh O POS 05/31/2020 10:52 AM CDT [facility] Blood Bank BLOOD SPECIMEN / Unknown Venipuncture / Unknown 05/31/2020 9:43 AM CDT 05/31/2020 10:23 AM CDT Alicia Winchester MD LAB - BLOOD BANK ORDERABLES Performing Organization Address [facility]/ZIP Co de Phone Number [facility] [address] [place] [address] * HCG URINE QUALITATIVE - POCT (IP) INTERFACED (05/31/2020 9:29 AM CDT) HCG Qual Urine Negative Negative 05/31/2020 9:35 AM CDT [facility] Urine URINE / Unknown 05/31/2020 9 :29 AM CDT 05/31/2020 9:35 AM CDT Alicia Winchester MD LAB - POINT OF CARE ORDERABLES Performing Organization Address [facility]/ZIP Co de Phone Number [facility] [address] [place] [address] * SARS-COV-2 (COVID-19) IN HOUSE (05/29/2020 7:12 AM CDT) Pathologist [facility] [place] COVID-19 PCR Not detected Not detected, Invalid 05/29/2020 4:31 PM CDT [facility] Microbiology SPECIMEN FROM NASOPHARYNGEAL STRUCTURE / Unknown Collection / Unknown 05/29/2020 7:12 AM CDT 05/29/2020 7:35 AM CDT Narrative [facility] - 05/29/2020 4:31 PM CDT This nucleic acid amplification assay performance was validated by [facility]. This test has been authorized by the Food and Drug administration (FDA)under an Emergency??Use Authorization (EUA). This test has been validated in accordance with the FDA's guidance document Policy for Diagnostic Testing in Laboratories Certified to perform High Complexity Testing under CLIA prior to Emergency Use Authorization for Coronavirus Disease-2019 during the Public Health Emergency issued on January 29, 2020. FDA independent review of this validation is pending. This test is only authorized for the duration of time the declaration that circumstances exist justifying the authorization of emergency use of in vitro diagnostic tests for detection of SARS-CoV-2 virus and/or diagnosis of COVID-19 infection under section 564(b)(1) of the Act, 21 U.S.C 360bbb-3 (b)(1), unless the authorization is terminated or revoked sooner. Alicia Winchester MD LAB - MICROB IOLOGY ORDERABLES Performing Organization Address City/[facility]/ZIP Co de Phone Number [facility] [address] [place] [address], [facility] [phone] * TYPE + SCREEN PANEL (05/29/2020 7:12 AM CDT) Pathologist [facility] [place] ABO Rh O POS 05/29/2020 8:17 AM CDT [facility] Comment:No history; collect retype. Antibody Screen NEG 0 8:17 AM CDT [facility] Blood Bank BLOOD SPECIMEN / Unknown Venipuncture / Unknown 05/29/2020 7:12 AM CDT 05/29/2020 7:34 AM CDT Alicia Winchester MD LAB - BLOOD BANK ORDERABLES [facility] [address] [place] [address], [facility] [phone] * CBC W AUTO DIFFERENTIAL (05/29/2020 7:12 AM CDT) Only the most recent of6 resultswithin the time period is included. Pathologist [facility] [place] WBC 7.8 4.4 - 10.7 x10E9/L 05/29/2020 7:45 AM CDT [facility] WBC Corrected 05/29/2020 7:45 AM CDT [facility] RBC 4.58 3.80 - 5.20 x10E12/L 05/29/2020 7:45 AM CDT [facility] Hemoglobin 14.0 12.0 - 15.6 gm/dL 05/29/2020 7:45 AM T [facility] Hematocrit 42.5 35.9 - 45.5 % 05/29/2020 7:45 AM T [facility] MCV 92.8 80.7 - 98.3 fl 05/29/2020 7:45 AM CDT [facility] MCH 30.6 26.7 - 34.0 pg 05/29/2020 7:45 AM CDT [facility] MCHC 32.9 30.8 - 35.9 gm/dL 05/29/2020 7:45 AM T [facility] Platelet Count 259 153 - 416 x10E9/L 05/29/2020 7:45 AM T [facility] RDW-CV 12.6 12.1 - 14.9 % 05/29/2020 7:45 AM CDT [facility] MPV 11.4 9.4 - 12.9 fl 05/29/2020 7:45 AM CDT [facility] Neutrophils % 54.1 44.0 - 73.0 % 05/29/2020 7:45 AM CDT [facility] Lymphocytes % 35.2 20.0 - 43.0 % 05/29/2020 7:45 AM CDT [facility] Monocytes % 7.6 5.0 - 13.0 % 05/29/2020 7:45 AM CDT [facility] Eosinophils % 1.9 0.0 - 6.0 % 05/29/2020 7:45 AM CDT [facility] Basophils % 0.9 0.0 - 2.0 % 05/29/2020 7:45 AM CDT [facility] Immature Granulocytes 0.3 0 - 1 % 05/29/2020 7:45 AM CDT [facility] Neutrophil Absolute 4.21 2.01 - 7.14 x10E9/L 05/29/2020 7:45 AM CDT [facility] Lymphocytes Absolute 2.74 1.07 - 3.94 x10E9/L 05/29/2020 7:45 AM CDT [facility] Monocytes Absolute 0.59 0.26 - 1.07 x10E9/L 05/29/2020 7:45 AM CDT [facility] Eosinophils Absolute 0.15 0 - 0.47 x10E9/L 05/29/2020 7:45 AM CDT [facility] Basophils Absolute 0.07 0 - 0.08 x10E9/L 05/29/2020 7:45 AM CDT [facility] Immature Granulocytes Absolute 0.02 0.00 - 0.06 x10E9/L 05/29/2020 7:45 AM CDT [facility] nRBC Auto 0 /100 WBC 05/29/2020 7:45 AM CDT [facility] Blood BLOOD SPECIMEN / Unknown Venipuncture / Unknown 05/29/2020 7:12 AM CDT 05/29/2020 7:34 AM CDT Alicia Winchester MD LAB - HEMATO LOGY ORDERABLES [facility] [address] [place] [address] * Visual Head (09/08/2019 11:26 AM CDT) Anatomical Region Laterality Modality Other 09/08/2019 11:2 6 AM CDT Maco I White OD OPHTHALMOLOGY SERVIC ES ORDERABLES * Visual Head (03/05/2019 8:49 AM CDT) Anatomical Region Laterality Modality Other 03/05/2019 8:49 AM CDT Maco I White OD OPHTHALMOLOGY SERVIC ES ORDERABLES * OCT (10/07/2018 12:04 PM SCOUT SNIPER) Anatomical Region Laterality Modality Other 10/07/2018 12:0 4 PM SCOUT SNIPER Maco I White OD OPHTHALMOLOGY SERVIC ES ORDERABLES * Visual Head (10/07/2018 11:31 AM SCOUT SNIPER) Anatomical Region Laterality Modality Other 10/07/2018 11:3 1 AM SCOUT SNIPER Maco I White OD OPHTHALMOLOGY SERVIC ES ORDERABLES * MRI BRAIN WO CONTRAST (10/04/2018 9:13 AM SCOUT SNIPER) Anatomical Region Laterality Modality Head Magnetic Resonan ce 10/04/2018 12:3 5 PM SCOUT SNIPER Impressions 10/04/2018 1:07 PM SCOUT SNIPER IMPRESSION: 1. No acute intracranial process. 2. Old left occipital infarction has properly evolved in the interval since 08/08/2017. This report was electronically signed by PASTORA WEBER ??on 10/04/2018 1:07 PM . Narrative 10/04/2018 1:07 PM SCOUT SNIPER MRI BRAIN WO WITHOUT INTRAVENOUS CONTRAST HISTORY: Vision loss. COMPARISON: MRI brain without and with contrast dated 08/08/2017. CORRELATION: CT head without intravenous contrast on 10/03/2018. TECHNIQUE: Multiplanar, multisequence images of the brain are obtained without intravenous contrast administration, following the routine protocol. FINDINGS: The previously identified acute infarction of the left occipital lobe on previous MRI examination, has properly evolved in the interval. There is no evidence of an acute infarction. No intracranial hemorrhage or evidence of hemosiderin deposition is identified. The brain volume is normal. Beside the tavares-infarct gliosis of the left occipital lobe, there are no significant white matter changes. There is a stable old small infarction of the left cerebellar hemisphere. The ventricles have stable normal size and morphology. There are no masses, mass effect, edema, midline shift or fluid collections. The lee-white interface is otherwise within normal limits. The basal cisterns are patent. There is normal flow void in the patent vertebral arteries, basilar artery and carotid siphons. The paranasal sinuses, middle ear cavities and the mastoid air cells are aerated and clear. The orbital contents are normal and symmetric. The craniocervical junction, midline structures and marrow signal intensity are within normal limits. Procedure Note Pastora Weber MD - 10/04/2018 MRI BRAIN WO WITHOUT INTRAVENOUS CONTRAST HISTORY: Vision loss. COMPARISON: MRI brain without and with contrast dated 08/08/2017. CORRELATION: CT head without intravenous contrast on 10/03/2018. TECHNIQUE: Multiplanar, multisequence images of the brain are obtained without intravenous contrast administration, following the routine protocol. FINDINGS: The previously identified acute infarction of the leftoccipital lobe on previous MRI examination, has properly evolved in the interval. There is no evidence of an acute infarction. No intracranial hemorrhageor evidence of hemosiderin deposition is identified. The brain volume is normal. Beside the tavares-infarct gliosis of the left occipital lobe,there are no significant white matter changes. There is a stable old small infarction of the left cerebellar hemisphere. The ventricles have stable normal size and morphology. There are no masses, mass effect, edema, midline shift or fluid collections. The lee-white interface isotherwise within normal limits. The basal cisterns are patent. There is normalflow void in the patent vertebral arteries, basilar artery and carotidsiphons. The paranasal sinuses, middle ear cavities and the mastoid air cells are aerated and clear. The orbital contents are normal and symmetric. The craniocervical junction, midline structures and marrow signal intensity are within normal limits. IMPRESSION: 1. No acute intracranial process. 2. Old left occipital infarction has properly evolved in the interval since 08/08/2017. This report was electronically signed by PASTORA WEBER on 10/04/2018 1:07 PM . Marty Shultz MD MR ORDERABLES * LIPID PROFILE (10/04/2018 2:53 AM SCOUT SNIPER) Only the most recent of3 resultswithin the time period is included. Cholesterol Total 164 <200 mg/dL 10/04/2018 3:18 AM [facility] HDL 54 >40 mg/dL 10/04/2018 3:18 AM [facility] Comment: ATP III Classification of HDL Cholesterol: ? <40 mg/dL: ??Considered a major risk factor. ? >60 mg/dL: ??Considered a negative risk factor. ? LDL Calculated 94 <100 mg/dL 10/04/2018 3:18 AM [facility] Comment: ATP III Classification of LDL Cholesterol: ?<100 mg/dL: ??Optimal ? 100 - 129 mg/dL: ??Near Optimal/Above Optimal ? 130 - 159 mg/dL: ??Borderline High ? 160 - 189 mg/dL: ??High ?>190 mg/dL: ??Very High ? Triglycerides 82 <150 mg/dL 10/04/2018 3:18 AM [facility] Comment: ATP III Classification of Triglycerides: ?<150 mg/dL: ??Normal ? 150 - 199 mg/dL: ??Borderline High ? 200 - 400 mg/dL: ??High ?>500 mg/dL: ??Very High Blood BLOOD SPECIMEN / Unknown Venipuncture / Unknown 10/04/2018 2:53 AM SCOUT SNIPER 10/04/2018 2:56 AM SCOUT SNIPER Bulmaro Orantes MD LAB - CHEMISTRY O RDERABLES [facility] [address] [phone] * HCG URINE QUALITATIVE - POINT OF CARE (10/03/2018 10:00 PM CDT) HCG Qual Urine Negative Negative [facility] P OCT TESTING QC Verified Yes Yes [facility] POCT TESTING Urine URINE / Unknown 10/03/2018 1 0:00 PM CDT Marty Shultz MD LAB - POINT OF CARE ORDERABLES [facility] POCT TESTING [id number] [address] [phone] * HEMOGLOBIN A1C (10/03/2018 7:43 PM CDT) Only the most recent of2 resultswithin the time period is included. Hemoglobin A1c 5.1 4.4 - 6.3 % 10/04/2018 9:41 AM [facility] Estimated Average Glucose 100 mg/dL 10/04/2018 9:41 AM [facility] Comment: HbA1c Interpretation: Treatment target values recommended by ADA and other clinical organizations should be used to evaluate metabolic control in patients. Treatment Target Values: Normal : < 5.7% Pre-diabetes: 5.7-6.4% Diabetes: Equal to or greater than 6.5% Reference: [place] [employer] Standards of Care in Diabetes -2014 In patients 70 years and older consider HbA1c target range of 7.0-7.5% Reference: ??Diabetes Mellitus in Older People: Position Statement on behalf of the International Association of Gerontology and Geriatrics (IAGG), the Diabetes Working Democrat for Older People (EDWPOP), and the International Task Force of Experts in Diabetes. ??Aly Claros, et al. J [place] [employer]. 2012 Test results diagnostic of diabetes should be repeated for confirmation. The Tosoh G8 assay for the measurement of HbA1c is a National Glycohemoglobin Standardization Program (NGSP)certified method. Results for patients with HbE disease should be interpreted with caution as this hemoglobinopathy has been shown to interfere with the Tosoh G8 assay. Blood BLOOD SPECIMEN / Unknown Lab Venipuncture / Unknown 10/03/2018 7:43 PM CDT 10/04/2018 8:01 AM SCOUT SNIPER Carolina Espino DO LAB - CHEMISTRY ORDMarla [facility] [address] [phone] * (ABNORMAL) BASIC METABOLIC PANEL (CALCIUM TOTAL) (10/03/2018 7:43 PM CDT) Only the most recent of7 resultswithin the time period is included. BUN 16 7 - 26 mg/dL 10/03/2018 8:15 PM [facility] Creatinine 1.0 0.6 - 1.2 mg/dL 10/03/2018 8:15 PM [facility] Sodium 139 136 - 145 mmol/L 10/03/2018 8:15 PM [facility] Potassium 3.6 3.5 - 4.5 mmol/L 10/03/2018 8:15 PM [facility] Chloride 104 98 - 107 mmol/L 10/03/2018 8:15 PM [facility] CO2 25 22 - 29 mmol/L 10/03/2018 8:15 PM [facility] Glucose 88 70 - 115 mg/dL 10/03/2018 8:15 PM [facility] Calcium 9.1 8.4 - 10.2 mg/dL 10/03/2018 8:15 PM [facility] Anion Gap 14 8 - 18 10/03/2018 8:15 PM [facility] BUN/Creatinine Ratio 16 7 - 23 10/03/2018 8:15 PM [facility] Osmolality Calculated 289 270 - 300 mOsm/kg 10/03/2018 8:15 PM [facility] eGFR 59(L) >60 mL/min/1.7 3 m2 10/03/2018 8:15 PM [facility] Blood BLOOD SPECIMEN / Unknown Venipuncture / Unknown 10/03/2018 7:43 PM CDT 10/03/2018 7:50 PM CDT Marty Shultz MD LAB - CHEMISTRY [place] [id number] [address] [phone] * CT HEAD WO CONTRAST (10/03/2018 7:36 PM CDT) Only the most recent of2 resultswithin the time period is included. Anatomical Region Laterality Modality Head Computed Tomogra phy 10/03/2018 7:51 PM CDT Impressions 10/04/2018 9:33 AM SCOUT SNIPER IMPRESSION: 1. No acute intracranial process. 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 Report dictated by Herbert Donohue MD (residential mortgage underwriter). I, Dr. PASTORA WEBER have personally reviewed and interpreted this examination/study. This report was electronically signed by PASTORA WEBER ??on 10/04/2018 9:33 AM . Narrative 10/04/2018 9:33 AM SCOUT SNIPER EXAMINATION: Computed tomography (CT) of the head without contrast HISTORY: Vision loss TECHNIQUE: CT of the head was performed without contrast according to standard protocol. COMPARISON: CT angiogram brain and neck dated 08/08/2017. 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 The small old infarction of the left cerebellar hemisphere is similar to the prior study. There is no CT evidence of an acute infarction. The lee-white interface is otherwise, within normal limits. No acute intra- or extra-axial hemorrhage or fluid collections are identified. The ventricles are of normal size, shape, and morphology. The basilar cisterns are patent. No mass effect or midline shift is seen. The orbital contents are normal and symmetric. The paranasal sinuses, middle ear cavities and the mastoid air cells are aerated and clear. No acute fracture is identified. Procedure Note Pastora Weber MD - 10/04/2018 EXAMINATION: Computed tomography (CT) of the head without contrast HISTORY: Vision loss TECHNIQUE: CT of the head was performed without contrast according to standard protocol. COMPARISON: CT angiogram brain and neck dated 08/08/2017. 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 The small old infarction of the left cerebellar hemisphere is similar to the prior study. There is no CT evidence of an acute infarction. The lee-white interface is otherwise, within normal limits. No acute intra- or extra-axial hemorrhage or fluid collections are identified. The ventricles are of normal size, shape, and morphology.The basilar cisterns are patent. No mass effect or midline shift is seen.The orbital contents are normal and symmetric. The paranasal sinuses, middle ear cavities and the mastoid air cells are aerated and clear. No acute fracture is identified. IMPRESSION: 1. No acute intracranial process. 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 Report dictated by Herbert Donohue MD (residential mortgage underwriter). I, Dr. PASTORA WEBER have personally reviewed and interpreted this examination/study. This report was electronically signed by PASTORA WEBER on 10/04/2018 9:33 AM . Marty Shultz MD CT ORDERABLES * (ABNORMAL) CARDIOLIPIN ANTIBODY IGG/IGM PANEL (04/09/2018 11:43 AM CDT) Cardiolipin Antibody IgG <14 GPL [facility] Comment: < OR = 14 ??Negative ?15-20 ??Indeterminate ?21-80 ??Low to Medium Positive ?>80 ??High Positive Greater than or equal to 40 GPL is a risk factor for thrombosis and loss. For more information on this test, go to: http://education.Sincuru/faq/YTI129 Cardiolipin Antibody IgM 13(H) MPL [facility] Comment: Clinical Significance: The Antiphospholipid Antibody Syndrome (APS) is a clinical pathologic correlation that includes a clinical event (e.g. thrombosis, loss, thrombocytopenia) and persistent positive Antiphospholipid Antibodies (IgM or IgG BRY >40 MPL/GPL, IgM or IgG anti-B2GP1 antibodies, or a Lupus Anticoagulant). The IgA isotype has been implicated in smaller studies, but have not yet been incorporated into the APS criteria. International consensus guidelines suggest waiting at least 12 weeks before retesting to confirm antibody persistence. Reference J Thromb Haemost 2006: 4; 295. < OR = 12 ??Negative ?13-20 ??Indeterminate ?21-80 ??Low to Medium Positive ?>80 ??High Positive Greater than or equal to 40 MPL is a risk factor for thrombosis and loss. For more information on this test, go to: http://[employer].Sincuru/faq/IAY134 Test Performed at: [facility] [address] [place], [place] ??[address] RAFI GARNER MD,PHD,SHRUTHI Blood BLOOD SPECIMEN / Unknown 04/09/2018 11:43 AM CDT 04/09/2018 11:43 AM CDT Zaid Delatorre MD LAB - SEROLOGY ORDER MATTIE Performing Organization Address [facility] de Phone Number [facility] [address] [place] [address] * LUPUS ANTICOAGULANT PANEL W RFLX (04/09/2018 11:43 AM CDT) Lupus Anticoagulant see note [facility] Comment: A Lupus Anticoagulant is not detected. Reference Range: ??Not Detected ? http://[employer].Sincuru/faq/LupusAnticoag ? This interpretation is based on the following test results. PTT Lupus Anticoagulant 35 <=40 sec [facility] Interpretation Not Indicated [facility] dRVVT Screen 30 <=45 sec [facility] Comment: REPORT COMMENT: FASTING:NO Test Performed at: [facility]/[address] ??[id number] HARIS PUENTE MD,PHD Blood BLOOD SPECIMEN / Unknown 04/09/2018 11:43 AM CDT 04/09/2018 11:43 AM CDT Zaid Delatorre MD LAB - HEMATOLOGY ORD ERABLES Performing Organization Address [facility] Co de Phone Number [facility] [address] [place] [address] * ECHO 2D ONLY WO COLOR OR DOPPLER (11/20/2017 12:25 PM SCOUT SNIPER) Anatomical Region Laterality Modality Other Narrative 11/20/2017 12:25 PM SCOUT SN[facility]ER [facility] 2-D & M-Mode Echocardiogram Report Color Flow Doppler Report Patients Name: Shankar Palomares ?: 1970 Age: 47 y.o. Gender: female ?? Date of Test: ??11/19/2017 Referring Physician: Saturnnio Foster MD [address] [facility] [address] [place] [address] Primary Care Physician: Jeana Wilburn Introduction: Shankar Palomares is a 47 y.o. female s/p PFO closure. Indication: followup Chamber Measurements LV Internal Dimension Systole (cm): 2.5 cm LV Internal Dimension Diastole (cm): 4.6 cm Septal Thickness (cm): 0.8 cm Posterior Wall Thickness (cm): 0.6 cm Aortic Root Measurement (cm): 2.9 cm Left Atrium Measurement (cm): 3.4 cm LVOT Diameter (cm): 1.7 cm Ejection Fraction 65% Color Flow and Doppler Waveform Analysis Aortic Velocities: AV Max (m/s): 1.5 m/s LVOT max (m/s): 0.9 m/s Mitral Velocities: E (m/s): 1.1 m/s A (m/s): 0.9 m/s Tricuspid Velocities: Max Tricuspid Valve Velocity (m/s): 0.5 m/s PulmonicVelocities: Max Pulmonic Valve Velocity (m/s): 1.1 m/s OVERALL INTERPRETATION: - Normal left ventricular size and systolic function. Ejection fraction is estimated to be 65%. - Normal right ventricular size and systolic function. - No abnormalities of the aorta or pericardium. ?? - There is an atrial septal occluder device seen in the fossa ovalis. Injection of agitated saline revealed evidence of a right to left cardiac shunt. The bubbles are seen in the left atrium after approximately 10 cardiac cycles, consistent with an extracardiac shunt. - Normal aortic valve structure and velocities. ?? - Normal mitral valve structure and velocities. ?? - Normal LV diastolic function. ?? - Normal tricuspid valve structure and velocities. - Normal pulmonary valve structure and velocities. ?? Electronically signed by: Shiv Giron MD Date of Interpretation: 11/20/2017 ?Date of Final Report: 11/20/2017 Procedure Note Provider, MD Kathy - 05/08/2018 [place] [address] CARDIOLOGY 2-D & M-Mode Echocardiogram Report Color Flow Doppler Report Patients Name: Shankar Palomares : 1970 Age: 47 y.o. Gender: female Date of Test: 11/19/2017 Referring Physician: Saturnino Foster MD [address] [facility] [address] [place] [address] Primary Care Physician: Jeana Wilburn Introduction: Shankar Palomares is a 47 y.o. female s/p PFO closure. Indication: followup Chamber Measurements LV Internal Dimension Systole (cm): 2.5 cm LV Internal Dimension Diastole (cm): 4.6 cm Septal Thickness (cm): 0.8 cm Posterior Wall Thickness (cm): 0.6 cm Aortic Root Measurement (cm): 2.9 cm Left Atrium Measurement (cm): 3.4 cm LVOT Diameter (cm): 1.7 cm Ejection Fraction 65% Color Flow and Doppler Waveform Analysis Aortic Velocities: AV Max (m/s): 1.5 m/s LVOT max (m/s): 0.9 m/s Mitral Velocities: E (m/s): 1.1 m/s A (m/s): 0.9 m/s Tricuspid Velocities: Max Tricuspid Valve Velocity (m/s): 0.5 m/s PulmonicVelocities: Max Pulmonic Valve Velocity (m/s): 1.1 m/s OVERALL INTERPRETATION: - Normal left ventricular size and systolic function. Ejection fraction isestimated to be 65%. - Normal right ventricular size and systolic function. - No abnormalities of the aorta or pericardium. - There is an atrial septal occluder device seen in the fossa ovalis.Injection of agitated saline revealed evidence of a right to left cardiacshunt. The bubbles are seen in the left atrium after approximately 10cardiac cycles, consistent with an extracardiac shunt. - Normal aortic valve structure and velocities. - Normal mitral valve structure and velocities. - Normal LV diastolic function. - Normal tricuspid valve structure and velocities. - Normal pulmonary valve structure and velocities. Electronically signed by: Shiv Giron MD Date of Interpretation: 11/20/2017 Date of Final Report:11/20/2017 Saturnino Foster MD ECHOCARDIOGRAPHY RAD IANT * CCL CCLOSURE PFO (10/09/2017 8:24 AM SCOUT SNIPER) Anatomical Region Laterality Modality X-Ray Angiograph y Narrative 10/09/2017 9:05 AM SCOUT SNIPER [facility] Cardiac Catheterization Procedure Note Patient: Shankar Palomares Age: 47 y.o. 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 ??She saw us as an outpatient to discuss the impact of her PFO on subsequent stroke risk, details of the procedure (including complications) and potential benefits. ??She wanted to move forward with percutaneous PFO closure to reduce subsequent stroke risk. ACCESS SITE(S): ?? right femoral vein (x2 with 8 Fr sheaths) PROCEDURAL OVERVIEW: After obtaining informed consent and positioning the patient on the catheterization table, a timeout was performed to confirm the patient? s name, date of , and procedure. ??Sedation was initiated and the patient was prepped and draped using standard sterile technique. ??Lidocaine was used for local anesthesia over the access site, after which the vessel was accessed and a sheath was placed using the modified Seldinger technique. ??Access was uncomplicated. The 8 Fr ICE catheter was then positioned inside the RA and views of the atrial septum confirmed the presence of a PFO. ??A 6 Fr MP catheter was then advanced to the right atrium over a 0.035 J-tipped guidewire and right atrial pressure was recorded. ??The MP catheter was then manipulated into the left atrium and pressure was recorded. ??An 18 mm Cribiform ASD closure device and an 8 Fr delivery sheath were then prepped. ??A 260 cm J-tipped Amplatz stiffed wire was then placed through the MP catheter and into the pulmonary vein. ??The MP catheter and sheath were removed, then the 8 Fr delivery system advanced into the left atrium. ??The wire was then removed. ??The closure device then inserted and the left atrial disc was exposed, then the device was pulled back against the atrial septum and the right atrial disc was exposed. ??ICE images, including color Doppler, were obtained to confirm that there was tissue in-between the discs and no residual shunts were detectable. ??At this point, the device was released. ??ICE images continued to confirm that complete closure was achieved. ??The sheath and ICE catheter were then removed. ??At the conclusion of the procedure, hemostasis was achieved using manual compression after removal of all catheters, wires, and sheaths. ?? COMPLICATIONS: none RECOMMENDATIONS AFTER DIAGNOSTIC CATHETERIZATION: ?? 1. ??Admit for observation overnight 2. ??ASA 81 mg and 75 mg Plavix QD x 6 months 3. ??Limited echo in AM 4. ??ABX prophylaxis for dental cleaning or any other procedures x 6 months 5. ??F/U with Dr Foster in 1 month with Echo (including bubble study) Saturnino Foster MD 10/09/2017 I was present for the entirety of the described procedure. Procedure Note Saturnino Foster MD - 05/08/2018 [facility] Cardiac Catheterization Procedure Note Patient: Shankar Palomares Age: 47 y.o. 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 She saw us as an outpatient to discuss theimpact of her PFO on subsequent stroke risk, details of the procedure(including complications) and potential benefits. She wanted to move forward with percutaneous PFOclosure to reduce subsequent stroke risk. ACCESS SITE(S): right femoral vein (x2 with 8 Fr sheaths) PROCEDURAL OVERVIEW: After obtaining informed consent and positioning the patient on thecatheterization table, a timeout was performed to confirm the patient? sname, date of , and procedure. Sedation was initiated and thepatient was prepped and draped using standard sterile technique. Lidocaine was used for local anesthesia over theaccess site, after which the vessel was accessed and a sheath was placedusing the modified Seldinger technique. Access was uncomplicated. The 8Fr ICE catheter was then positioned inside the RA and views of the atrial septum confirmed the presence of aPFO. A 6 Fr MP catheter was then advanced to the right atrium over a0.035 J-tipped guidewire and right atrial pressure was recorded. The MPcatheter was then manipulated into the left atrium and pressure was recorded. An 18 mm Cribiform ASD closuredevice and an 8 Fr delivery sheath were then prepped. A 260 cm J-tippedAmplatz stiffed wire was then placed through the MP catheter and into thepulmonary vein. The MP catheter and sheath were removed, then the 8 Fr delivery system advanced into theleft atrium. The wire was then removed. The closure device then insertedand the left atrial disc was exposed, then the device was pulled backagainst the atrial septum and the right atrial disc was exposed. ICE images, including color Doppler, wereobtained to confirm that there was tissue in-between the discs and noresidual shunts were detectable. At this point, the device was released.ICE images continued to confirm that complete closure was achieved. The sheath and ICE catheter were thenremoved. At the conclusion of the procedure, hemostasis was achievedusing manual compression after removal of all catheters, wires, andsheaths. COMPLICATIONS: none RECOMMENDATIONS AFTER DIAGNOSTIC CATHETERIZATION: 1. Admit for observation overnight 2. ASA 81 mg and 75 mg Plavix QD x 6 months 3. Limited echo in AM 4. ABX prophylaxis for dental cleaning or any other procedures x 6months 5. F/U with Dr Foster in 1 month with Echo (including bubble study) Saturnino Foster MD 10/09/2017 I was present for the entirety of the described procedure. Saturnino Foster MD CARDIAC DEALER CARD ROOM RAD IANT * ECHO FU OR LIMITED (10/09/2017 12:00 AM SCOUT SNIPER) Anatomical Region Laterality Modality Other 10/09/2017 Leah Griffin PUGGER HELPER-REGISTERED [facility] ECHOCARDIOGRAP HY RADIANT * EKG 12-LEAD (10/09/2017 12:00 AM SCOUT SNIPER) Only the most recent of2 resultswithin the time period is included. EKG [facility] Comment: Exam Date/Time: ?? Oct 10 2017 00:55:38 Test Reason : s/p PFO closure device implantation Blood Pressure : / mmHG Vent. Rate : 061 BPM ? Atrial Rate : 061 BPM ?? P-R Int : 130 ms ?QRS Dur : 080 ms ?QT Int : 422 ms ? P-R-T Axes : 038 053 055 degrees ?? QTc Int : 424 ms Normal sinus rhythm Normal ECG When compared with ECG of 08-AUG-2017 20:34, No significant change was found Confirmed by NOHEMY COSBY, P ([id number]), acquisition editor DESI ABDI ([id number]) on 10/15/2017 1:31:00 PM Referred By: PRIMARY NO ? Confirmed By:Hiram SLATER MD 10/09/2017 Leah Griffin [facility]REGISTER[facility] ECG ORDERABLES Performing Organization Address [facility] Co de Phone Number [facility] * PT-INR [facility] (09/29/2017 11:35 AM CDT) Only the most recent of3 resultswithin the time period is included. Pathologist [facility] PT 12.8 12.1 - 14.8 Seconds [facility] INR 1.0 See Comment [facility] Comment: Suggested therapeutic range for low-intensity coumadin therapy for venous thromboembolism prophylaxis is an INR of 2.0-3.0. ??For high risk patients (Mitral Valve Prosthesis, Atrial Fibrillation, history of TIA/stroke), suggested prophylactic therapeutic range is an INR of 2.5-3.5. Blood specimen (specimen) BLOOD SPECIMEN / Unknown 09/29/2017 11:35 AM CDT 09/29/2017 12:04 PM CDT Narrative [facility] - 09/29/2017 12:34 PM CDT Is patient on Heparin, Argatroban or Dabigatran?->N Saturnino Foster MD LAB - COAGULATION OR DERABLES Performing Organization Address [facility]/ZIP Co de Phone Number [address] [phone] * EVENT MONITOR (09/26/2017 2:50 PM CDT) Narrative [facility] RAD[facility]OLOG[facility] - 09/26/2017 2:50 PM CDT Shankar Palomares underwent cardiac monitoring with a 30 day event monitor. ??Results are as follows: Quality of Tracings: ??Fair, baseline artifact present, which at times may interfere with interpretation of rhythm. Rhythm: ??Sinus. Rates: ??42-118 with a mean of 62 beats per minute. Ectopy: ??Rare APC's. Symptoms: ??Flutter, which correlated with sinus rhythm with APC, rate 63 beats per minute. Please feel free to contact me with any questions, thank you. Procedure Note Provider, MD Kathy - 05/08/2018 Shankar Palomares underwent cardiac monitoring with a 30 day event monitor.Results are as follows: Quality of Tracings: Fair, baseline artifact present, which at times mayinterfere with interpretation of rhythm. Rhythm: Sinus. Rates: 42-118 with a mean of 62 beats per minute. Ectopy: Rare APC's. Symptoms: Flutter, which correlated with sinus rhythm with APC, rate 63beats per minute. Please feel free to contact me with any questions, thank you. Raymon Duncan CD CARDIAC SERVICES ORD ERABLES Performing Organization Address [facility] de Phone Number [facility] RADIOLOG[facility] * PHOSPHORUS BLOOD (08/11/2017 6:48 AM CDT) Only the most recent of4 resultswithin the time period is included. Phosphorus 2.7 2.3 - 4.7 mg/dL [facility] Blood specimen (specimen) BLOOD SPECIMEN / Unknown 08/11/2017 6:48 AM CDT 08/11/2017 6:56 AM CDT French Lin MD LAB - CHEMISTRY ORDERABLES Performing Organization Address [facility] Co de Phone Number [address] [phone] * MAGNESIUM BLOOD (08/11/2017 6:48 AM CDT) Only the most recent of4 resultswithin the time period is included. Magnesium 1.9 1.6 - 2.6 mg/dL [facility] Blood specimen (specimen) BLOOD SPECIMEN / Unknown 08/11/2017 6:48 AM CDT 08/11/2017 6:56 AM CDT French Lin MD LAB - CHEMISTRY ORDERABLES [address] [phone] * PROTHROMBIN [id number] PANEL (08/09/2017 2:21 PM CDT) PT PCR Specimen Whole Blood [facility] ([facility]) Prothrombin (F2) [id number] Mutation Negative [facility] ([facility]) Comment: Indication for testing: Assess genetic risk for thrombosis. NEGATIVE: The Factor II, prothrombin [id number] mutation, was not detected. ??Other causes of elevated prothrombin levels and hereditary forms of venous thrombosis have not been excluded. Recommendations: ??If clinically indicated, testing for other inherited or acquired thrombophilic disorders is recommended including DNA testing for the factor V Leiden mutation, measurement of total plasma homocysteine concentration, serological assays for anticardiolipin antibodies, multiple phospholipid-dependent coagulation assays for lupus inhibitor, protein C activity, protein S activity or free protein S antigen, and antithrombin activity. This result has been reviewed and approved by Bernice Dial, Ph.D. 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 The expression of Factor II thrombophilia is impacted by coexisting genetic thrombophilic disorders, acquired thrombophilic disorders (eg, malignancy, hyperhomocysteinemia, high factor VIII levels), and circumstances including: , oral contraceptive use, hormone replacement therapy, selective estrogen receptor modulators, travel, central venous catheters, surgery, and organ transplantation. INCIDENCE: Approximately 2 percent of Caucasians and 0.3 percent of Americans are heterozygous; homozygosity occurs in 1 in 10,000 individuals. INHERITANCE: Incomplete autosomal dominant. PENETRANCE: The risk of thrombosis is increased 2-4 fold for heterozygotes and further increased for homozygotes. 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 PATHOGENIC VARIANT TESTED: F2 c.*97G>A ([id number]). CLINICAL SENSITIVITY FOR VENOUS THROMBOSIS: Approximately 10 percent. METHODOLOGY: Polymerase chain reaction and fluorescence monitoring. ANALYTICAL SENSITIVITY AND SPECIFICITY: 99 percent. LIMITATIONS: Diagnostic errors can occur due to rare sequence variations. F2 gene variants, other than c.*97G>A ([id number]), will not be detected. Test developed and characteristics determined by [facility]. See Compliance Statement C: [facility]/ Performed by [facility], [address] [place] [id number] [email or web address], Hiren Rodriguez MD, Lab. Director Blood specimen (specimen) BLOOD SPECIMEN / Unknown 08/09/2017 2:21 PM CDT 08/09/2017 2:44 PM CDT Kushal Foster MD LAB - COAGULATION OR DERABLES [facility] ([facility]) * FACTOR V LEIDEN MUTATION PANEL (08/09/2017 2:21 PM CDT) Specimen Type Whole Blood [facility] ([facility] Factor V Leiden R506Q Mutation Negative [facility] ([facility]) Comment: Indication for testing: Assess genetic risk for thrombosis. NEGATIVE: The factor V Leiden mutation, R506Q, was not detected. This result has been reviewed and approved by Azeem Larkin, Ph.D. BACKGROUND INFORMATION: Factor V Leiden (F5) R506Q Mutation CHARACTERISTICS: Factor V Leiden mutation is the most common cause of inherited thrombophilia and accounts for over 90 percent of activated protein C resistance. The expression of Factor V Leiden thrombophilia is impacted by coexisting genetic thrombophilic disorders, acquired thrombophilic disorders (malignancy, hyperhomocysteinemia, high factor VIII levels), and circumstances including: , oral contraceptive use, hormone replacement therapy, selective estrogen receptor modulators, travel, central venous catheters, surgery, transplantation and advanced age. INCIDENCE: Approximately 5 percent of Caucasians, 2 percent of Hispanics, 1 percent of Americans and [place] Americans and 0.5 percent of Asians are heterozygous; homozygosity occurs in 1 in 5000 individuals. INHERITANCE: Incomplete autosomal dominant. PENETRANCE: Lifetime risk of thrombosis is 10 percent for heterozygotes and 80 percent of homozygotes. CAUSE: A deleterious F5 gene mutations R506Q (1691G>A) Note: Standardized nomenclature for the Factor V Leiden mutation is c.1601G>A ([id number]). CLINICAL SENSITIVITY AND SPECIFICITY: 99 percent. METHODOLOGY: Polymerase chain reaction and fluorescence monitoring. ANALYTICAL SENSITIVITY AND SPECIFICITY: 99 percent. LIMITATIONS: Diagnostic errors can occur due to rare sequence variations. F5 gene mutations, other than R506Q, will not be detected. Test developed and characteristics determined by [facility]. See Compliance Statement C: [facility]/ Performed by [facility], [address] [place] [id number] [email or web address], Hiren Rodriguez MD, Lab. Director Blood specimen (specimen) BLOOD SPECIMEN / Unknown 08/09/2017 2:21 PM CDT 08/09/2017 2:44 PM CDT Kushal Foster MD LAB - COAGULATION OR DERABLES [facility] ([facility]) * PTT [facility] (08/09/2017 2:21 PM CDT) Only the most recent of2 resultswithin the time period is included. APTT 24.6 23.0 - 38.4 Seconds [facility] Comment:Suggested therapeuti c range for full dose I.V. heparin therapy for venous thromboembolism is 66.0-91.0 seconds. Blood specimen (specimen) BLOOD SPECIMEN / Unknown 08/09/2017 2:21 PM CDT 08/09/2017 2:43 PM CDT Narrative [facility] - 08/09/2017 3:01 PM CDT Please ensure that the aPTT specimen is received in the clinical lab within 1 hour of collection if it is used for therapeutic heparin monitoring. Processing of heparinized specimens older than 1 hour may result in inaccurate test results. Is patient on Heparin, Argatroban or Dabigatran?->Y Kushal Foster MD LAB - COAGULATION OR DERABLES Performing Organization Address City/[facility]/ZIP Co de Phone Number [address] [phone] * PROTEIN S ANTIGEN (08/09/2017 2:21 PM CDT) Protein S Antigen Total 83 60 - 150 % [facility] ([facility]) Comment: This test was developed and its performance characteristics determined by [employer] [employer]. It has not been cleared or approved by the Food and Drug Administration. Protein S Antigen, Free 87 57 - 157 % [facility] ([facility]) Comment: This test was developed and its performance characteristics determined by [facility]. It has not been cleared or approved by the Food and Drug Administration. Blood specimen (specimen) BLOOD SPECIMEN / Unknown 08/09/2017 2:21 PM CDT 08/09/2017 2:44 PM CDT Narrative [facility] [employer] - 08/13/2017 6:12 AM CDT Performed at: ??01 - [address] ??[id number] Credit And Collections Representative: Roger Ortiz MD, Phone: ??[phone] Kushal Foster MD LAB - COAGULATION OR DERABLES [facility]) * PROTEIN C ANTIGEN (08/09/2017 2:21 PM CDT) Protein C Antigen 94 60 - 150 % [facility] Blood specimen (specimen) BLOOD SPECIMEN / Unknown 08/09/2017 2:21 PM CDT 08/09/2017 2:44 PM CDT Narrative [facility] ([facility]) - 08/13/2017 6:12 AM CDT Performed at: ??01 - [address] ??[id number] Credit And Collections Representative: Roger Ortiz MD, Phone: ??[phone] Kushal Foster MD LAB - COAGULATION OR DERABLES Performing Organization Address [facility] Co de Phone Number [facility]) * ANTITHROMBIN III ANTIGEN (08/09/2017 2:21 PM CDT) Pathologist [facility] [place] Antithrombin Antigen 79 72 - 124 % [facility]) Comment: This test was developed and its performance characteristics determined by [facility]. It has not been cleared or approved by the Food and Drug Administration. Blood specimen (specimen) BLOOD SPECIMEN / Unknown 08/09/2017 2:21 PM CDT 08/09/2017 2:[address] [facility]) - 08/13/2017 6:12 AM CDT Performed at: ??01 - [address] ??[id number] Credit And Collections Representative: Roger Ortiz MD, Phone: ??[phone] Kushal Foster MD LAB - COAGULATION OR DERABLES Performing Organization Address [facility] Co de Phone Number [facility]) * TROPONIN I (08/09/2017 8:33 AM CDT) Only the most recent of2 resultswithin the time period is included. [facility] Troponin I <0.010 <0.032 ng/mL [facility] Blood specimen (specimen) BLOOD SPECIMEN / Unknown 08/09/2017 8:33 AM CDT 08/09/2017 9:01 AM CDT French Lin MD LAB - CHEMISTRY ORDERABLES Performing Organization Address City/[facility]/ZIP Co de Phone Number [address] [phone] * CK + CKMB PANEL (08/09/2017 8:33 AM CDT) Only the most recent of2 resultswithin the time period is included. Pathologist [facility] [place] CK Total 67 30 - 200 Units/L [facility] CK-MB 0.6 0.0 - 6.6 ng/mL [facility] Blood specimen (specimen) BLOOD SPECIMEN / Unknown 08/09/2017 8:33 AM CDT 08/09/2017 9:01 AM CDT French Lin MD LAB - CHEMISTRY ORDERABLES Performing Organization Address City/[facility]/ZIP Co de Phone Number [address] [phone] * (ABNORMAL) TSH (08/09/2017 8:33 AM CDT) [facility] TSH 6.896(H) 0.350 - 4.940 uIU/mL [facility] Blood specimen (specimen) BLOOD SPECIMEN / Unknown 08/09/2017 8:33 AM CDT 08/09/2017 9:01 AM CDT Kushal Foster MD LAB - CHEMISTRY INESSA SERRANO Performing Organization Address [facility]/ZIP Co de Phone Number [address] [phone] * T4 FREE (08/09/2017 8:33 AM CDT) [facility] T4 Free 1.0 0.7 - 1.5 ng/dL [facility] Blood specimen (specimen) BLOOD SPECIMEN / Unknown 08/09/2017 8:33 AM CDT 08/09/2017 9:01 AM CDT Kushal Foster MD LAB - CHEMISTRY INESSA SERRANO Performing Organization Address [facility]/ZIP Co de Phone Number [address] [phone] * CBC W/O DIFFERENTIAL (08/09/2017 5:14 AM CDT) [facility] WBC 8.8 3.5 - 10.5 10? 3 /uL [facility] RBC 4.67 3.90 - 5.00 10? 6 /uL [facility] Hemoglobin 13.9 12.0 - 15.5 g/dL [facility] Hematocrit 41.8 35.0 - 45.0 % [facility] MCV 89.5 81.0 - 97.0 fL [facility] MCH 29.8 28.0 - 34.0 pg [facility] MCHC 33.3 32.0 - 36.0 g/dL [facility] Platelet Count 265 150 - 400 10? 3 /uL [facility] RDW-SD 39.5 36.0 - 50.0 fL [facility] RDW-CV 12.4 11.2 - 14.8 % [facility] MPV 11.1 9.3 - 12.8 fL [facility] Blood specimen (specimen) BLOOD SPECIMEN / Unknown 08/09/2017 5:14 AM CDT 08/09/2017 5:24 AM CDT French Lin MD LAB - HEMATOLOGY ORDERABLES Performing Organization Address City/State/[facility] Co de Phone Number [address] [phone] * MRI BRAIN WWO CONTRAST (08/08/2017 9:36 PM CDT) Anatomical Region Laterality Modality Head Other Impressions 08/09/2017 7:26 AM CDT IMPRESSION: 1. ??Findings consistent with an area of early subacute infarction in the left occipital lobe. No hemorrhagic conversion. This report was electronically signed by PHUONG PANTOJA M.D. ??on 08/09/2017 7:26 AM . Narrative 08/09/2017 7:26 AM CDT EXAMINATION: Magnetic resonance imaging (MRI) of the brain without and with contrast HISTORY: right hemianopia TECHNIQUE: MRI of the brain was performed prior to and following the uneventful administration of 7 mL Gadavist intravenous gadolinium contrast according to a tumor protocol. FINDINGS: Comparison is made with a study from earlier today. No evidence of acute or chronic hemorrhage is identified. There is an area of diffusion restriction in the left occipital lobe associated with vasogenic edema and mild leptomeningeal enhancement of the adjacent sulci. There is no mass effect. These findings are most consistent with an early subacute infarct. The ventricles are of normal size, shape, and morphology. No mass effect or midline shift is seen. A small chronic lacunar infarct is noted in the left cerebellar hemisphere. ??The corpus callosum and sella appear normal. The posterior fossa, brainstem, and craniocervical junction appear normal. The visualized portions of the orbits, paranasal sinuses, and mastoids appear normal. Normal flow voids are demonstrated in the carotid arteries and basilar artery. The calvarium and visualized cervical spine appear normal. Procedure Note Phuong Pantoja MD - 02/27/2018 EXAMINATION: Magnetic resonance imaging (MRI) of the brain without andwith contrast HISTORY: right hemianopia TECHNIQUE: MRI of the brain was performed prior to and following theuneventful administration of 7 mL Gadavist intravenous gadolinium contrastaccording to a tumor protocol. FINDINGS: Comparison is made with a study from earlier today. No evidence of acute or chronic hemorrhage is identified. There is an areaof diffusion restriction in the left occipital lobe associated withvasogenic edema and mild leptomeningeal enhancement of the adjacent sulci.There is no mass effect. These findings are most consistent with an early subacute infarct. Theventricles are of normal size, shape, and morphology. No mass effect ormidline shift is seen. A small chronic lacunar infarct is noted in theleft cerebellar hemisphere. The corpus callosum and sella appear normal. The posterior fossa, brainstem, andcraniocervical junction appear normal. The visualized portions of the orbits, paranasal sinuses, and mastoidsappear normal. Normal flow voids are demonstrated in the carotid arteriesand basilar artery. The calvarium and visualized cervical spine appearnormal. IMPRESSION IMPRESSION: 1. Findings consistent with an area of early subacute infarction in theleft occipital lobe. No hemorrhagic conversion. This report was electronically signed by PHUONG PANTOJA M.D. on 08/09/20177:26 AM . Fadia Turner MD MR ORDERABLES * CT ANGIO BRAIN AND NECK (08/08/2017 12:38 PM CDT) Anatomical Region Laterality Modality Head Other Impressions 08/08/2017 2:56 PM CDT IMPRESSION: 1. No acute intracranial hemorrhage. 2. No large arterial occlusions or significant stenoses identified in the head or neck. This report was approved ??by Marina William ?? on 08/08/2017 1:58 PM . I, Dr. JUANY PINEDA M.D. have personally reviewed and interpreted this examination/study. This report was electronically signed by JUANY PINEDA M.D. ??on 08/08/2017 2:56 PM . Narrative 08/08/2017 2:56 PM CDT EXAMINATION: 1. Computed tomographic (CT) angiography of the head without and with contrast 2. CT angiography of the neck with contrast HISTORY: Evaluate for possible stroke, history of recent visual field changes. TECHNIQUE: CT of the head was performed without contrast according to standard protocol. Then CT angiography of the head and neck was obtained after the uneventful administration of 50 mL Omnipaque 350 intravenous contrast. Three dimensional postprocessing was performed by the technologist and sent to the workstation for review. FINDINGS: Comparison is made to CT head dated 08/08/2017. Non-angiographic findings: No acute intra- or extra-axial fluid collections are identified. The ventricles are of normal size, shape, and morphology. The basilar cisterns are patent. No mass effect or midline shift is seen. The lee-white matter differentiation is normal. There is an old lacunar infarct in the left cerebellar region. The visualized portions of the orbits, paranasal sinuses, and mastoids appear normal. No acute fracture is identified. No soft tissue abnormalities are identified in the neck. Angiographic findings: The visible aortic arch appears normal. The left vertebral artery arises directly from the aortic arch. The innominate artery and both subclavian arteries appear normal. The right common and internal carotid arteries as well as the right carotid bifurcation appear normal. The left common and internal carotid arteries as well as the left carotid bifurcation appear normal. The cervical vertebral arteries appear normal. The distal internal carotid arteries appear normal. The anterior and middle cerebral arteries appear normal. The distal vertebral arteries appear normal. The basilar artery and posterior cerebral arteries appear normal. No aneurysms, vascular occlusions, or intracranial stenoses are identified. Procedure Note Juany Pineda MD - 02/27/2018 EXAMINATION: 1. Computed tomographic (CT) angiography of the head without and withcontrast 2. CT angiography of the neck with contrast HISTORY: Evaluate for possible stroke, history of recent visual fieldchanges. TECHNIQUE: CT of the head was performed without contrast according tostandard protocol. Then CT angiography of the head and neck was obtainedafter the uneventful administration of 50 mL Omnipaque 350 intravenouscontrast. Three dimensional postprocessing was performed by the technologist and sent to theworkstation for review. FINDINGS: Comparison is made to CT head dated 08/08/2017. Non-angiographic findings: No acute intra- or extra-axial fluid collections are identified. Theventricles are of normal size, shape, and morphology. The basilar cisternsare patent. No mass effect or midline shift is seen. The lee-white matterdifferentiation is normal. There is an old lacunar infarct in the left cerebellar region. The visualizedportions of the orbits, paranasal sinuses, and mastoids appear normal. Noacute fracture is identified. No soft tissue abnormalities are identified in the neck. Angiographic findings: The visible aortic arch appears normal. The left vertebral artery arisesdirectly from the aortic arch. The innominate artery and both subclavianarteries appear normal. The right common and internal carotid arteries aswell as the right carotid bifurcation appear normal. The left common and internal carotid arteriesas well as the left carotid bifurcation appear normal. The cervicalvertebral arteries appear normal. The distal internal carotid arteries appear normal. The anterior andmiddle cerebral arteries appear normal. The distal vertebral arteriesappear normal. The basilar artery and posterior cerebral arteries appearnormal. No aneurysms, vascular occlusions, or intracranial stenoses are identified. IMPRESSION IMPRESSION: 1. No acute intracranial hemorrhage. 2. No large arterial occlusions or significant stenoses identified in thehead or neck. This report was approved by Marina Stewart on 08/08/2017 1:58 PM . IDr. JUANY M.D. have personally reviewed and interpreted thisexamination/study. This report was electronically signed by JUANY PINEDA M.D. on 08/08/20172:56 PM . French Lin MD CT ORDERABLES * (ABNORMAL) C-REACTIVE PROTEIN (08/08/2017 8:11 AM CDT) C-Reactive Protein 2.5(H) <=0.5 mg/dL [facility] Blood specimen (specimen) BLOOD SPECIMEN / Unknown 08/08/2017 8:11 AM CDT 08/08/2017 8:11 AM CDT French Lin MD LAB - CHEMISTRY ORDERABLES Performing Organization Address City/[facility]/ZIP Co de Phone Number [address] [phone] * ERYTHROCYTE SEDIMENTATION RATE (08/08/2017 8:11 AM CDT) Erythrocyte Sedimentation Rate Westergren 10 0 - 20 MM/HR [facility] Blood specimen (specimen) BLOOD SPECIMEN / Unknown 08/08/2017 8:11 AM CDT 08/08/2017 8:11 AM CDT French Lin MD LAB - HEMATOLOGY ORDERABLES Performing Organization Address [facility] Co de Phone Number [address] [phone] * ECHO W DOPPLER AND COLOR FLOW (08/08/2017 12:00 AM CDT) Anatomical Region Laterality Modality Other 08/08/2017 French Lin MD ECHOCARDIOGRAPHY RADIANT Care Teams Tree Faller Relationship Specialty Start Date End Date Jeana Wilburn MD [address] [place] [address] PCP - General 03/19/18
--- OUTSIDE RECORDS SUMMARY | 2025-01-05 11:14 | XMS_ITS | Referral Summary ---
Author Organization [facility] Healthcare Address [address] [place] [address] Care Team Providers Care Supervisor In Charge Name Role Phone Jeana Wilburn MD Primary [...] (10/11/2022): Added automatically from request for surgery [id number] Social History Tobacco Use Types Packs/Day Years [...] on file Legal Sex Female 3:31 PM [employer] Gender Identity Female 10/10/2022 10:08 AM [employer] Sexual Orientation Straight 10/10/2022 10 :08 AM [employer] Last Filed Vital Signs Vital Sign Reading Time Taken Comments Blood Pressure 124/81 12/05/2022 3:12 PM [employer] Pulse 63 12/05/2022 3:12 PM [employer] Temperature 36.3 ??C (97.3 ??F) 12/05/2022 1:47 PM CS T Respiratory Rate 17 12/05/2022 3:12 PM [employer] Oxygen Saturation 100% 12/05/2022 3:12 PM [employer] Inhaled Oxygen Concentration - - Weight 83.5 kg (184 lb) 12/05/2022 1:47 PM [employer] Height 167.6 cm (5' 6 ) 12/05/2022 1:47 PM [employer] Body Mass Index 29.7 12/05/2022 1:47 PM [employer] Plan of Treatment Not on file Insurance [facility] [employer] [place] [facility] [employer] Advance Directives For more information, please contact: [phone] * Full Code (Latest Code Status on File) Date Activated Date Inactivated Comments 12/05/2022 1:36 PM 12/05/2022 7:25 PM Care Teams Supervisor In Charge Relationship Specialty Start Date End Date Jeana Wilburn MD PCP - General 12/10/17
--- OUTSIDE RECORDS SUMMARY | 2025-01-05 11:14 | XMS_ITS | Clinical Summary ---
Author Organization [facility] Address [address] [place] [address] Care Team Providers Care Foil Wrapper Name Role Phone Jeana Wilburn MD Primary Care Provider [phone] Source Comments [facility],non-owned Affiliates and Associated Physician Practices is amultiple site organization consisting of ambulatory clinics and hospital sitesin [place], [place], [place] and [place]. This disclosure is being madepursuant to the Care Everywhere program and may not contain all information available regarding this patient. Last updated 18.[facility] Allergies Active Allergy Reactions Criticality Noted [...] 10/14/2018 Vision loss 10/03/2018 H/O ischemic left STRAW BALER stroke 07/13/2018 PFO (patent foramen ovale) 09/05/2017 [...] 06/15/2020 4:17 PM CDT Plan of Treatment Health Maintenance Due Date Last Done Comments COLOGUARD (AGES 45-75) - COLON CA SCREENING 1971 COLON MONITORING 1971 COLONOSCOPY - COLON CA SCREENING 1971 CT COLONOGRAPHY - COLON CA SCREENING 1971 Colorectal Cancer Screening 1971 FIT - COLON CA SCREENING 1971 FLEX SIG - COLON CA SCREENING 1971 MAMMOGRAM 1971 HIV SCREENING 1986 HEPATITIS C SCREENING 06/27/1989 DTAP/TDAP/TD VACCINES (1 - Tdap) 1990 HEPATITIS B VACCINE (1 of 3 - 19+ 3-dose series) 1990 PNEUMOCOCCAL VACCINE 50+ (1 of 1 - PCV) 2021 ZOSTER VACCINE (1 of 2) 2021 SCREENING FOR DIABETES 10/03/2021 8, 10/03/2018, 09/29/2017, Additional history exists LIPID TESTING 10/04/2023 10/04/2018, 07/2017, 06/02/2017 COVID-19 VACCINE ( season) 2024 INFLUENZA VACCINE (#1) 2024 0, 10/09/2019, 09/16/2018, Additional history exists DEPRESSION SCREENING 12/01/2024 HIB VACCINE Aged Out No longer eligi ble based on patient's age to complete this topic HPV VACCINE Aged Out No longer eligi ble based on patient's age to complete this topic MENINGOCOCCAL (Group B) VACCINE Aged Out No longer eligible based on patient's age to complete this topic MENINGOCOCCAL VACCINE Aged Out No maryse griselda eligible based on patient's age to complete this topic PNEUMOCOCCAL VACCINE Aged Out No long er eligible based on patient's age to complete this topic Procedures Procedure Name Priority Date/Time Associated Diagnosis Comments LIPID PROFILE STAT 10/04/2018 2:53 AM TE[employer] TR[employer] WORK[employer] Vision loss BASIC METABOLIC PANEL (CALCIUM TOTAL) STAT 10/03/2018 7:43 PM CDT from Last 3 Months or Most Recently Relevant to Health Maintenance Results * LIPID PROFILE (10/04/2018 2:53 AM [employer]) Cholesterol Total 164 <200 mg/dL 10/04/2018 3:18 AM [facility] HDL 54 >40 mg/dL 10/04/2018 3:18 AM [facility] Comment: ATP III Classification of HDL Cholesterol: ? <40 mg/dL: ??Considered a major risk factor. ? >60 mg/dL: ??Considered a negative risk factor. ? LDL Calculated 94 <100 mg/dL 10/04/2018 3:18 AM [facility] Comment: ATP III Classification of LDL Cholesterol: [...] Unknown Venipuncture / Unknown 10/04/2018 2:53 AM [employer] 10/04/2018 2:56 AM [employer] Bulmaro Orantes MD LAB - CHEMISTRY O RDERABLES Performing Organization Address City/State/[facility] Co de Phone Number [facility] [address] [phone] * (ABNORMAL) BASIC METABOLIC PANEL (CALCIUM TOTAL) (10/03/2018 7:43 PM CDT) BUN 16 7 - 26 mg/dL 10/03/2018 8:15 PM [facility] Creatinine 1.0 0.6 - 1.2 mg/dL 10/03/2018 8:15 PM [facility] Sodium 139 136 - 145 mmol/L 10/03/2018 8:15 PM [facility] Potassium 3.6 3.5 - 4.5 mmol/L 10/03/2018 8:15 PM [facility] Chloride 104 98 - 107 mmol/L 10/03/2018 8:15 PM [facility] CO2 25 22 - 29 mmol/L 10/03/2018 8:15 PM [facility] Glucose 88 70 - 115 mg/dL 10/03/2018 8:15 PM [facility] Calcium 9.1 8.4 - 10.2 mg/dL 10/03/2018 8:15 PM [facility] Anion Gap 14 8 - 18 10/03/2018 8:15 PM [facility] BUN/Creatinine Ratio 16 7 - 23 10/03/2018 8:15 PM CDT [facility] Osmolality Calculated 289 270 - 300 mOsm/kg 10/03/2018 8:15 PM CDT [facility] eGFR 59(L) >60 mL/min/1.7 3 m2 10/03/2018 8:15 PM CDT [facility] Blood BLOOD SPECIMEN / Unknown Venipuncture / Unknown 10/03/2018 7:43 PM CDT 10/03/2018 7:50 PM CDT Marty Shultz MD LAB - CHEMISTRY INESSA SERRANO [facility] [address] [phone] from Last 3 Months or Most Recently Relevant to Health Maintenance Advance Directives * Full Code (Latest Code Status on File) Date Activated Date Inactivated Comments 10/04/2018 2:13 AM 10/04/2018 12:33 PM * Full Code Date Activated Date Inactivated Comments 10/03/2018 9:27 PM 10/04/2018 2:13 AM Care Teams Foil Wrapper Relationship Specialty Start Date End Date Jeana Wilburn MD [address] [place] [address] PCP - General 03/19/18
[2025-01-05 16:29] LABS: Anion Gap 7 mmol/L (4-12); Blood Urea Nitrogen 18 mg/dL (7-17); Calcium 9.3 mg/dL (8.4-10.2); Carbon Dioxide 30 mmol/L (22-30); Chloride 103 mmol/L (98-107); Estimated Glomerular Filt Rate > 60; Glucose 73 mg/dL (65-110); Potassium 4.7 mmol/L (3.4-5.0); Sodium 140 mmol/L (137-145)
[2025-01-10 16:49] LABS: Thyroid Peroxidase Antibodies 33 IU/mL (<9)
== END 2025-01-05 10:09 | disposition home or self-care (01) ==
LOC: ANHGOSHLAB 10:10
PROVIDERS: PCP Family Medicine; Visit Provider Family Medicine
DX: N28.9 Disorder of kidney and ureter, unspecified (principal); R79.89 Other specified abnormal findings of blood chemistry
CPT/HCPCS: 36415; 80048; 84443; 86376

== ENCOUNTER 2025-06-21 14:30 | Outpatient (CLI) | payer OTHER, SELFPAY ==
--- NOTE | ~2025-06-21 | MM_ITS ---
EXAMINATION: MM screening chelsy BI w tonja HISTORY: Screening TECHNIQUE: Craniocaudal and mediolateral oblique 3-D tomosynthesis images were obtained and synthetic 2-D images were generated. CAD analysis was submitted and interpreted. COMPARISON: Comparison to multiple prior studies sequentially, with oldest reviewed study dated 11/02. BREAST PARENCHYMAL COMPOSITION: The breasts are heterogeneously dense, which may obscure small masses . FINDINGS: There is no evidence of suspicious mass, calcification, or architectural distortion to sug gest malignancy in either breast. IMPRESSION: 1. No mammographic evidence of malignancy. 2. Recommend routine screening mammography in one year. BI-RADS Category 1: Negative Reviewed, dictated and finalized at location B.
--- OUTSIDE RECORDS SUMMARY | 2025-06-21 14:36 | XMS_ITS | Clinical Summary ---
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
--- OUTSIDE RECORDS SUMMARY | 2025-06-21 14:36 | XMS_ITS | Referral Summary ---
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 Gender Identity Female 10/10/2022 10:08 AM INSPECTOR PENETRANT Sexual Orientation Straight 10/10/2022 10 :08 AM INSPECTOR PENETRANT Last Filed Vital Signs Vital Sign Reading Time Taken Comments Blood Pressure 124/81 12/05/2022 3:12 PM INSPECTOR PENETRANT Pulse 63 12/05/2022 3:12 PM INSPECTOR PENETRANT Temperature 36.3 C (97.3 F) 12/05/2022 1:47 PM INSPECTOR PENETRANT Respiratory Rate 17 12/05/2022 3:12 PM INSPECTOR PENETRANT Oxygen Saturation 100% 12/05/2022 3:12 PM INSPECTOR PENETRANT Inhaled Oxygen Concentration - - Weight 83.5 kg (184 lb) 12/05/2022 1:47 PM INSPECTOR PENETRANT Height 167.6 cm (5' 6) 12/05/2022 1:47 PM INSPECTOR PENETRANT Body Mass Index 29.7 12/05/2022 1:47 PM INSPECTOR PENETRANT Plan of Treatment Not on file Insurance [facility] HEALTH BENEFIT PLAN [facility] HEALTH BENEFIT PLAN Advance Directives For more information, please contact: [phone] * Full Code (Latest Code Status on File) Date Activated Date Inactivated Comments 12/05/2022 1:36 PM 12/05/2022 7:25 PM Care Teams Copy Room Technician Relationship Specialty Start Date End Date Jeana Wilburn MD PCP - General 12/10/17
--- OUTSIDE RECORDS SUMMARY | 2025-06-21 14:36 | XMS_ITS | Encounter Summary ---
Author Organization [facility] Address [address] [place] [address] Phone Care Team Providers Care Principal Programmer Name Role Phone Jeana Wilburn MD Primary Care Provider + Encounter Details Date Type Department Care Team (Late st Contact Info) Description 10/30/2018 Ophth Exam [facility] Ophthalmology [address] [place] [address] 1st [place] [id number] Radha Benítez MD [address] [place], [place] [id number] Social History Tobacco Use Types Packs/Day Years Used Date Smoking Tobacco: Never Assessed Comments Unknown Sex and Gender Information Value Date Recorded Sex Assigned at Not on file Legal Sex Female 3:31 PM FUNDING SPECIALIST Gender Identity Female 10/10/2022 10:08 AM FUNDING SPECIALIST Sexual Orientation Straight 10/10/2022 10 :08 AM FUNDING SPECIALIST documented as of this encounter Plan of [...] Normal Normal Periphery Normal Normal Care Teams Principal Programmer Relationship Specialty Start Date End Date Jeana Wilburn MD PCP - General 12/10/17 documented as of this encounter
--- OUTSIDE RECORDS SUMMARY | 2025-06-21 14:36 | XMS_ITS | Clinical Summary ---
Author Organization [facility] Healthcare Address [address] [place] [address] Care Team Providers Care Chief Engineering Division Name Role Phone Jeana Wilburn MD Primary [...] (10/11/2022): Added automatically from request for surgery [id number] Surgical History Surgery Date Site/Laterality Comments HYSTERECTOMY [...] on file Legal Sex Female 3:31 PM INBOUND SALES ADVISOR Gender Identity Female 10/10/2022 10:08 AM INBOUND SALES ADVISOR Sexual Orientation Straight 10/10/2022 10 :08 AM INBOUND SALES ADVISOR Obstetrics History Last Filed Vital Signs Vital Sign Reading Time Taken Comments Blood Pressure 124/81 12/05/2022 3:12 PM INBOUND SALES ADVISOR Pulse 63 12/05/2022 3:12 PM INBOUND SALES ADVISOR Temperature 36.3 C (97.3 F) 12/05/2022 1:47 PM INBOUND SALES ADVISOR Respiratory Rate 17 12/05/2022 3:12 PM INBOUND SALES ADVISOR Oxygen Saturation 100% 12/05/2022 3:12 PM INBOUND SALES ADVISOR Inhaled Oxygen Concentration - - Weight 83.5 kg (184 lb) 12/05/2022 1:47 PM INBOUND SALES ADVISOR Height 167.6 cm (5' 6) 12/05/2022 1:47 PM INBOUND SALES ADVISOR Body Mass Index 29.7 12/05/2022 1:47 PM INBOUND SALES ADVISOR Plan of Treatment Health Maintenance Due Date Last Done Comments Breast Cancer Screening-Mammogram 1971 Colon Cancer Screening-Colonoscopy 1971 Depression Screening 1971 Hepatitis C Screening 1971 DTaP/Tdap/Td Vaccine (1 - Tdap) 1982 Hepatitis B Screening 1989 Regular Well Visit/Exam 18-64 1989 Zoster Vaccine (1 of 2) 2021 Covid-19 Vaccine ( season) 2024 09/24/2021, 01/02/2021, 12/05/2020 Influenza Vaccine (Season Ended) 2025 09/04/2022, 10/10/2020, 10/09/2019, Additional history exists Pneumococcal vaccine <65 Aged Out No longer eligible based on patient's age to complete this topic Insurance [facility] HEALTH BENEFIT PLAN [facility] BENEFIT PLAN Advance Directives For more information, please contact: [phone] * Full Code (Latest Code Status on File) Date Activated Date Inactivated Comments 12/05/2022 1:36 PM 12/05/2022 7:25 PM Care Teams Chief Engineering Division Relationship Specialty Start Date End Date Jeana Wilburn MD PCP - General 12/10/17
--- OUTSIDE RECORDS SUMMARY | 2025-06-21 14:36 | XMS_ITS | Clinical Summary ---
Author Organization [facility] Address [address] [place] [address] Care Team Providers Care Reed Repairer Name Role Phone Jeana Wilburn MD Primary Care Provider [phone] Source Comments [facility],non-owned Affiliates and Associated Physician Practices is amultiple site organization consisting of ambulatory clinics and hospital sitesin [place], [place], [place] and [place]. This disclosure is being madepursuant to the Care Everywhere program and may not contain all information available regarding this patient. Last updated 18.[facility] [employer] Allergies Active Allergy Reactions Criticality Noted Date Comments Penicillins Urticaria High 08/08/2017 Medications * Be aware that medications may not be up to date on this document. Alwaysverify current medications with the patient. aspirin EC (ECOTRIN) 81 MG tablet Take 81 mg by mouth once daily Active omeprazole (PRILOSEC) 40 MG capsule Take 40 mg by mouth daily before breakfast Active Active Problems Problem Noted Date Diagnosed Date Visual aura 10/14/2018 Migraine with visual aura 10/14/2018 Vision loss 10/03/2018 H/O ischemic left DIRECTOR OF CONSUMER MARKETING stroke 07/13/2018 PFO (patent foramen ovale) 09/05/2017 S/P cholecystectomy 09/05/2017 Hemianopia 08/08/2017 Ischemic stroke 08/08/2017 Fibroid S/P hysterectomy Immunizations Immunization Administration Dates Next Due INFLUENZA VACCINE 10/10/2020 INFLUENZA VACCINE, CELL CULT URE, QUADR. (FLUCELVAX QUADRIVALENT; 6MO+) (CCIIV4) 09/16/2018 INFLUENZA VACCINE, QUADR. (F LUZONE; FLULAVAL; FLUARIX; AFLURIA QUADRIVALENT; 6MO+), 0.5 ML (IIV4) 10/09/2019,10/13/2016 Social History Tobacco Use Types Packs/Day Years Used Date Smoking Tobacco: Never Smokeless Tobacco: Never Alcohol Use Standard Drinks/Week Comments Yes 0 (1 standard drink = 0.6 oz pur e alcohol) Comments No Sex and Gender Information Value Date Recorded Sex Assigned at Not on file Legal Sex Female 5:23 AM HEEL DIPPER Gender Identity Not on file Sexual Orientation Not on file Last Filed Vital Signs Vital Sign Reading Time Taken Comments Blood Pressure 126/84 07/17/2020 1:18 PM CDT Pulse 61 06/01/2020 10:00 AM CDT Temperature 37.1 C (98.7 F) 06/01/2020 10:00 AM CDT Respiratory Rate 18 06/01/2020 10:00 AM CDT Oxygen Saturation 100% 06/01/2020 10:00 AM CDT Inhaled Oxygen Concentration - - Weight 74.8 kg (165 lb) 07/17/2020 1:18 PM CDT Height 167.6 cm (5' 6) 06/15/2020 4:17 PM CDT Body Mass Index [...] 2021 SCREENING FOR DIABETES 10/03/2021 8, 10/03/2018, 09/16/2018, Additional history exists LIPID TESTING 10/04/2023 10/04/2018, 08/31, 08/08/2017, Additional history exists COVID-19 VACCINE ( season) 2024 DEPRESSION SCREENING 12/01/2024 INFLUENZA VACCINE (#1) 2025 , 10/09/2019, 09/16/2018, Additional history exists HIB VACCINE Aged Out No longer eligi ble based on patient's age to complete this topic HPV VACCINE Aged Out No longer eligi ble based on patient's age to complete this topic MENINGOCOCCAL (Group B) VACCINE SHARED DECISION-MAKING Aged Out No longer eligible based on patient's age to complete this topic MENINGOCOCCAL GROUPS A/C/Y/W VACCINE Aged Out No longer eligible based on patient's age to complete this topic Procedures Procedure Name Priority Date/Time Associated Diagnosis Comments LIPID PROFILE STAT 10/04/2018 2:53 AM HEEL DIPPER Vision loss BASIC METABOLIC PANEL (CALCIUM TOTAL) STAT 10/03/2018 7:43 PM CDT from Last 3 Months or Most Recently Relevant to Health Maintenance Results * LIPID PROFILE (10/04/2018 2:53 AM HEEL DIPPER) Cholesterol Total 164 <200 mg/dL 10/04/2018 3:18 AM [facility] HDL 54 >40 mg/dL 10/04/2018 3:18 AM [facility] Comment: ATP III Classification of HDL Cholesterol: <40 mg/dL: Considered a major risk factor. >60 mg/dL: Considered a negative risk factor. LDL Calculated 94 <100 mg/dL 10/04/2018 3:18 AM [facility] Comment: ATP III Classification of LDL Cholesterol: <100 mg/dL: Optimal 100 - 129 mg/dL: Near Optimal/Above Optimal 130 - 159 mg/dL: Borderline High 160 - 189 mg/dL: High >190 mg/dL: Very High Triglycerides 82 <150 mg/dL 10/04/2018 3:18 AM [facility] Comment: ATP III Classification of Triglycerides: <150 mg/dL: Normal 150 - 199 mg/dL: Borderline High 200 - 400 mg/dL: High >500 mg/dL: Very High Blood BLOOD SPECIMEN / Unknown Venipuncture / Unknown 10/04/2018 2:53 AM HEEL DIPPER 10/04/2018 2:56 AM HEEL DIPPER us Bulmaro Orantes MD LAB - CHEMISTRY ORDERABLE S Final Result [facility] [address] [place] [address] * (ABNORMAL) BASIC METABOLIC PANEL (CALCIUM TOTAL) (10/03/2018 7:43 PM CDT) BUN 16 7 - 26 mg/dL 10/03/2018 8:15 PM [facility] Creatinine 1.0 0.6 - 1.2 mg/dL 10/03/2018 8:15 PM [facility] Sodium 139 136 - 145 mmol/L 10/03/2018 8:15 PM [facility] Potassium 3.6 3.5 - 4.5 mmol/L 10/03/2018 8:15 PM [facility] Chloride 104 98 - 107 mmol/L 10/03/2018 8:15 PM [facility] CO2 25 22 - 29 mmol/L 10/03/2018 8:15 PM [facility] Glucose 88 70 - 115 mg/dL 10/03/2018 8:15 PM [facility] Calcium 9.1 8.4 - 10.2 mg/dL 10/03/2018 8:15 PM [facility] Anion Gap 14 8 - 18 10/03/2018 8:15 PM [facility] BUN/Creatinine Ratio 16 7 - 23 10/03/2018 8:15 PM [facility] Osmolality Calculated 289 270 - 300 mOsm/kg 10/03/2018 8:15 PM [facility] eGFR 59(L) >60 mL/min/1.7 3 m2 10/03/2018 8:15 PM [facility] Blood BLOOD SPECIMEN / Unknown Venipuncture / Unknown 10/03/2018 7:43 PM CDT 10/03/2018 7:50 PM CDT Marty Shultz MD LAB - CHEMISTRY ORDERABLES F inal Result [address] [phone] from Last 3 Months or Most Recently Relevant to Health Maintenance Insurance [facility] Advance Directives * Full Code (Latest Code Status on File) Date Activated Date Inactivated Comments 10/04/2018 2:13 AM 10/04/2018 12:33 PM * Full Code Date Activated Date Inactivated Comments 10/03/2018 9:27 PM 10/04/2018 2:13 AM Care Teams Reed Repairer Relationship Specialty Start Date End Date Jeana Wilburn MD [address] [place] [address] [facility] - General 03/19/18
== END 2025-06-21 14:31 | disposition home or self-care (01) ==
LOC: ANHIMG 14:32
PROVIDERS: PCP Family Medicine; Visit Provider Family Medicine
DX: Z12.31 Encounter for screening mammogram for malignant neoplasm of breast (principal); Z00.00 Encounter for general adult medical examination without abnormal findings; Z79.899 Other long term (current) drug therapy
CPT/HCPCS: 77063; 77067

== ENCOUNTER 2025-10-19 08:56 | Outpatient (CLI) | payer OTHER, SELFPAY ==
--- OUTSIDE RECORDS SUMMARY | 2025-10-19 11:14 | XMS_ITS | Clinical Summary ---
Author Organization [facility] Address [address] [place] [address] Care Team Providers Care Back Roller Name Role Phone Jeana Wilburn MD Primary Care Provider [phone] Source Comments [facility],non-owned Affiliates and Associated Physician Practices is amultiple site organization consisting of ambulatory clinics and hospital sitesin [place], [place], [place] and [place]. This disclosure is being madepursuant to the Care Everywhere program and may not contain all information available regarding this patient. Last updated 18.[facility] [employer] Allergies Active Allergy Reactions Criticality Noted Date [...] 10/14/2018 Vision loss 10/03/2018 H/O ischemic left TRACK PATROL stroke 07/13/2018 PFO (patent foramen ovale) 09/05/2017 [...] on file Legal Sex Female 5:23 AM DIRECTOR CPG Gender Identity Not on file Sexual Orientation [...] Additional history exists LIPID TESTING 10/04/2023 10/04/2018, 090 07/2017, 06/02/2017 DEPRESSION SCREENING 12/01/2024 COVID-19 VACCINE ( season) 2025 INFLUENZA VACCINE (#1) 2025 , 10/09/2019, 09/16/2018, [...] Comments LIPID PROFILE STAT 10/04/2018 2:53 AM DIRECTOR CPG Vision loss BASIC METABOLIC PANEL (CALCIUM TOTAL) STAT 10/03/2018 7:43 PM CDT from Last 3 Months or Most Recently Relevant to Health Maintenance Results * LIPID PROFILE (10/04/2018 2:53 AM DIRECTOR CPG) Cholesterol Total 164 <200 mg/dL 10/04/2018 3:18 AM [facility] HDL 54 >40 mg/dL 10/04/2018 3:18 AM [facility] Comment: ATP III Classification of HDL Cholesterol: <40 mg/dL: Considered a major risk factor. >60 mg/dL: Considered a negative risk factor. LDL Calculated 94 <100 mg/dL 10/04/2018 3:18 AM [facility] Comment: ATP III Classification of LDL Cholesterol: <100 mg/dL: Optimal 100 - 129 mg/dL: Near Optimal/Above Optimal 130 - 159 mg/dL: Borderline High 160 - 189 mg/dL: High >190 mg/dL: Very High Triglycerides 82 <150 mg/dL 10/04/2018 3:18 AM [facility] Comment: ATP III Classification of Triglycerides: <150 mg/dL: Normal 150 - 199 mg/dL: Borderline High 200 - 400 mg/dL: High >500 mg/dL: Very High Blood BLOOD SPECIMEN / Unknown Venipuncture / Unknown 10/04/2018 2:53 AM DIRECTOR CPG 10/04/2018 2:56 AM DIRECTOR CPG us Bulmaro Orantes MD LAB - CHEMISTRY ORDERABLE S Final Result [facility] [address] [place] [address] * (ABNORMAL) BASIC METABOLIC PANEL (CALCIUM TOTAL) (10/03/2018 7:43 PM CDT) BUN 16 7 - 26 mg/dL 10/03/2018 8:15 PM [facility] Creatinine 1.0 0.6 - 1.2 mg/dL 10/03/2018 8:15 PM [facility] Sodium 139 136 - 145 mmol/L 10/03/2018 8:15 PM [facility] Potassium 3.6 3.5 - 4.5 mmol/L 10/03/2018 8:15 PM [facility] Chloride 104 98 - 107 mmol/L 10/03/2018 8:15 PM [facility] CO2 25 22 - 29 mmol/L 10/03/2018 8:15 PM [facility] Glucose 88 70 - 115 mg/dL 10/03/2018 8:15 PM [facility] Calcium 9.1 8.4 - 10.2 mg/dL 10/03/2018 8:15 PM [facility] Anion Gap 14 8 - 18 10/03/2018 8:15 PM [facility] BUN/Creatinine Ratio 16 7 - 23 10/03/2018 8:15 PM [facility] Osmolality Calculated 289 270 - 300 mOsm/kg 10/03/2018 8:15 PM [facility] eGFR 59(L) >60 mL/min/1.7 3 m2 10/03/2018 8:15 PM [facility] Blood BLOOD SPECIMEN / Unknown Venipuncture / Unknown 10/03/2018 7:43 PM CDT 10/03/2018 7:50 PM CDT us Marty Shultz MD LAB - CHEMISTRY ORDERABLES F inal Result [address] [phone] from Last 3 Months or Most Recently Relevant to Health Maintenance Insurance [facility] ANTH Advance Directives * Full Code (Latest Code Status on File) Date Activated Date Inactivated Comments 10/04/2018 2:13 AM 10/04/2018 12:33 PM * Full Code Date Activated Date Inactivated Comments 10/03/2018 9:27 PM 10/04/2018 2:13 AM Care Teams Back Roller Relationship Specialty Start Date End Date Jeana Wilburn MD [address] [place] [address] [facility] - General 03/19/18
--- OUTSIDE RECORDS SUMMARY | 2025-10-19 11:15 | XMS_ITS | Patient Health Record ---
Author Organization [facility] Address [address] [place], [place] [id number] Care Team Providers Care Aircraft Engine Mechanic Overhaul Name Role Phone CATHY Parks Unavailable [phone] Saturnino Wilburn Unavailable Unavailable Reason For Referral No Information Medications Medication SIG (Take, Route, Frequency, Duration) Notes Start Date End Date Status Aspirin 81 MG Oral Capsule ORAL aspirin 81 MG Oral CapsuleOriginal Medicationaspirin 81 MG Oral Capsule *Reorder from [employer] for eRx and Interaction Alerts* 12/26/2021 Active omeprazole 20 MG Delayed Release Oral Capsule ORAL omeprazole 20 MG Delayed Release Oral CapsuleOriginal Medicationomeprazole 20 MG Delayed Release Oral Capsule *Reorder from [employer] for eRx and Interaction Alerts* 12/26/2021 Active Social History Social History Additional Details Category Social Info Options Details Migrated Social History Migrated Social History History of tobacco use : , Smoking Status : Never used tobacco Plan Of Treatment No Information Insurance Providers Payer Name Payer Address Payer Phone Subscriber Number Group Number Insured Name Patient Relationship to Insured Coverage Start Date Coverage End Date CIG[employer] [address] [place], [place] [id number] SHANI BUSH Self - patient is the insured
--- OUTSIDE RECORDS SUMMARY | 2025-10-19 11:15 | XMS_ITS | Clinical Summary ---
Author Organization [facility] Address [address] [place] [address] Care Team Providers Care Executive Kitchen Manager Name Role Phone Jeana Wilburn MD Primary [...] (10/11/2022): Added automatically from request for surgery [id number] Surgical History Surgery Date Site/Laterality Comments HYSTERECTOMY [...] on file Legal Sex Female 3:31 PM MICROSOFT OFFICE INSTRUCTOR Gender Identity Female 10/10/2022 10:08 AM MICROSOFT OFFICE INSTRUCTOR Sexual Orientation Straight 10/10/2022 10 :08 AM MICROSOFT OFFICE INSTRUCTOR Last Filed Vital Signs Vital Sign Reading Time Taken Comments Blood Pressure 124/81 12/05/2022 3:12 PM MICROSOFT OFFICE INSTRUCTOR Pulse 63 12/05/2022 3:12 PM MICROSOFT OFFICE INSTRUCTOR Temperature 36.3 C (97.3 F) 12/05/2022 1:47 PM MICROSOFT OFFICE INSTRUCTOR Respiratory Rate 17 12/05/2022 3:12 PM MICROSOFT OFFICE INSTRUCTOR Oxygen Saturation 100% 12/05/2022 3:12 PM MICROSOFT OFFICE INSTRUCTOR Inhaled Oxygen Concentration - - Weight 83.5 kg (184 lb) 12/05/2022 1:47 PM MICROSOFT OFFICE INSTRUCTOR Height 167.6 cm (5' 6) 12/05/2022 1:47 PM MICROSOFT OFFICE INSTRUCTOR Body Mass Index 29.7 12/05/2022 1:47 PM MICROSOFT OFFICE INSTRUCTOR Plan of Treatment Health Maintenance Due Date Last Done Comments Breast Cancer Screening-Mammogram 1970 Colon Cancer Screening-Colonoscopy 1971 Depression Screening 1971 Hepatitis C Screening 1971 DTaP/Tdap/Td Vaccine (1 - Tdap) 1982 Hepatitis B Screening 1989 Regular Well Visit/Exam 18-64 1989 Zoster Vaccine (1 of 2) 2021 Covid-19 Vaccine ( season) 2025 09/24/2021, 01/02/2021, 12/05/2020 Influenza Vaccine (#1) 2025 2, 10/10/2020, 10/09/2019, Additional history exists Pneumococcal vaccine <65 Aged Out No longer eligible based on patient's age to complete this topic Insurance [facility] Advance Directives For more information, please contact: [phone] * Full Code (Latest Code Status on File) Date Activated Date Inactivated Comments 12/05/2022 1:36 PM 12/05/2022 7:25 PM Care Teams Executive Kitchen Manager Relationship Specialty Start Date End Date Jeana Wilburn MD PCP - General 12/10/17
--- OUTSIDE RECORDS SUMMARY | 2025-10-19 11:16 | XMS_ITS | Encounter Summary ---
Author Organization [facility] Address [address] [place] [address] Phone Care Team Providers Care Earthmoving Plant Operator Name Role Phone Jeana Wilburn MD Primary Care Provider + Encounter Details Date Type Department Care Team (Late st Contact Info) Description 10/30/2018 Ophth Exam [facility] Medicine Ophthalmology [address] [place] [address] 1[address] [place] [address] Radha Benítez MD [address] [place], [place] [id number] Social History Tobacco Use Types Packs/Day Years Used Date Smoking Tobacco: Never Assessed Comments Unknown Sex and Gender Information Value Date Recorded Sex Assigned at Not on file Legal Sex Female 3:31 PM COMPUTER TRAINER Gender Identity Female 10/10/2022 10:08 AM COMPUTER TRAINER Sexual Orientation Straight 10/10/2022 10 :08 AM COMPUTER TRAINER documented as of this encounter Functional Status * Fall Risk Assessment Tool - MEDFRAT Question Answer Date of Assessment Author History of falling in last 3 months, including since admission 0 10/30/2018 4:05 PM Crista Josue RN Confusion or disorientation 0 10/30/2018 4:05 PM Crista Josue RN Intoxicated or sedated 0 10/30/2018 4:05 PM Crista Josue RN Impaired gait 0 10/30/2018 4:05 PM Crista Wilhelm RN Mobility assist device used 0 10/30/2018 4:05 PM Crista Josue RN Altered elimination 0 10/30/2018 4:05 PM Crista Gama RN Fall risk score: (1-2 low risk), (3-4 moderate risk), (5 or more high risk) 0 10/30/2018 4:05 PM Crista Josue RN Interventions - GENERAL USE as needed patient/family education;call light in reach;bed low/locked 10/30/2018 4:05 PM Crista Josue RN documented as of this encounter Plan of [...] Normal Normal Periphery Normal Normal Care Teams Earthmoving Plant Operator Relationship Specialty Start Date End Date Jeana Wilburn MD PCP - General 12/10/17 documented as of this encounter
[2025-10-19 13:08] LABS: Hematocrit 45.9 % (37.0-47.0); Hemoglobin 14.8 g/dL (12.0-15.0); Immature Granulocyte Percent A 0.1 % (0-0.5); Lymphocytes Absolute Auto 3.03 K/mm3 (0.9-3.2); Mean Corpuscular HGB Conc 32.2 g/dl (32-36); Mean Corpuscular Hemoglobin 29.8 pg (26-34); Mean Corpuscular Volume 92.5 fl (80-100); Nucleated Red Blood Cells Absolute Auto 0.000 K/mm3 (0.0-0.012); Nucleated Red Blood Cells Perc 0.0 % (0.0-0.2); Platelet Count Result 276 k/mm3 (150-375); Red Blood Count 4.96 M/mm3 (4.2-5.4); White Blood Count 6.7 K/mm3 (4.5-10.0)
[2025-10-19 17:53] LABS: Alanine Aminotransferase 37 U/L (6-35); Albumin Level 4.2 g/dL (3.5-5.1); Alkaline Phosphatase 39 U/L (38-126); Anion Gap 8 mmol/L (4-12); Aspartate Amino Transferase 45 U/L (14-36); Bilirubin,Total 0.5 mg/dL (0.2-1.3); Blood Urea Nitrogen 18 mg/dL (7-17); Calcium 9.0 mg/dL (8.4-10.2); Carbon Dioxide 28 mmol/L (22-30); Chloride 101 mmol/L (98-107); Cholesterol 217 mg/dL (0-200); Estimated Glomerular Filt Rate 53; Glucose 53 mg/dL (65-110); HDL Direct 60 mg/dL; Potassium 4.7 mmol/L (3.4-5.0); Sodium 137 mmol/L (137-145); Total Protein 7.6 g/dL (6.3-8.2); Triglycerides 114 mg/dL (<150)
[2025-10-19 17:55] LABS: Ferritin 107.00 ng/mL (11.1-264)
[2025-10-19 18:17] LABS: Thyroid Stimulating Hormone 4.300 uIU/mL (0.465-4.680)
== END 2025-10-19 08:57 | disposition home or self-care (01) ==
LOC: ANHGOSHLAB 08:57
PROVIDERS: PCP Family Medicine; Visit Provider Family Medicine
DX: Z00.00 Encounter for general adult medical examination without abnormal findings (principal); R79.89 Other specified abnormal findings of blood chemistry; E78.2 Mixed hyperlipidemia
CPT/HCPCS: 36415; 80053; 80061; 82306; 82728; 84443; 85025

== ENCOUNTER 2025-10-20 07:00 | Outpatient (NON) | payer OTHER, SELFPAY ==
--- NOTE | 2025-10-20 | S_PTH ---
PATIENT: Shankar Palomares LOC: ANHLAB #:[id number] AGE/SX: 55/F ROOM: RE10/20/[address]: Jeana Wilburn MD : 1970 BED: DIS: 10/20/2025 SPEC #: [id number] RECD: 10/21/25 08:13 STATUS: BALAJI REQ #: [id number] ALYSON: 10/20/25 00:[address]: Jeana Wilburn DEPT: [facility] Surgical RECD BY: Giovana Magana Tissues: A - Skin B - Skin Procedures: Hematoxylin and Eosin Stain Gross and Microscopic Level 4
--- OUTSIDE RECORDS SUMMARY | 2025-10-21 07:43 | XMS_ITS | Patient Health Record ---
Author Organization [facility] Address [address] [place], [place] [address] Care Team Providers Care Supportability Engineer Name Role Phone CATHY Parks Unavailable [phone] Saturnino Wilburn Unavailable Unavailable Reason For Referral No Information Medications Medication SIG (Take, Route, Frequency, Duration) Notes Start Date End Date Status Aspirin 81 MG Oral Capsule ORAL aspirin 81 MG Oral CapsuleOriginal Medicationaspirin 81 MG Oral Capsule *Reorder from [employer] for eRx and Interaction Alerts* 12/26/2021 Active omeprazole 20 MG Delayed Release Oral Capsule ORAL omeprazole 20 MG Delayed Release Oral CapsuleOriginal Medicationomeprazole 20 MG Delayed Release Oral Capsule *Reorder from [employer] for eRx and Interaction Alerts* 12/26/2021 Active [...] Date Coverage End Date CIGNA [address] [place], [place] [address] [id number] SHANI BUSH Self - patient is the insured
--- OUTSIDE RECORDS SUMMARY | 2025-10-21 07:43 | XMS_ITS | Clinical Summary ---
Author Organization [facility] Address [address] [place] [address] Care Team Providers Care Erecting Crane Operator Name Role Phone Jeana Wilburn MD [...] (10/11/2022): Added automatically from request for surgery [id number] Surgical History Surgery Date Site/Laterality Comments HYSTERECTOMY [...] on file Legal Sex Female 3:31 PM MANAGER FLORAL Gender Identity Female 10/10/2022 10:08 AM MANAGER FLORAL Sexual Orientation Straight 10/10/2022 10 :08 AM MANAGER FLORAL Last Filed Vital Signs Vital Sign Reading Time Taken Comments Blood Pressure 124/81 12/05/2022 3:12 PM MANAGER FLORAL Pulse 63 12/05/2022 3:12 PM MANAGER FLORAL Temperature 36.3 C (97.3 F) 12/05/2022 1:47 PM MANAGER FLORAL Respiratory Rate 17 12/05/2022 3:12 PM MANAGER FLORAL Oxygen Saturation 100% 12/05/2022 3:12 PM MANAGER FLORAL Inhaled Oxygen Concentration - - Weight 83.5 kg (184 lb) 12/05/2022 1:47 PM MANAGER FLORAL Height 167.6 cm (5' 6) 12/05/2022 1:47 PM MANAGER FLORAL Body Mass Index 29.7 12/05/2022 1:47 PM MANAGER FLORAL Plan of Treatment Health Maintenance Due Date [...] patient's age to complete this topic Insurance [facility] [employer] [employer] Advance Directives For more information, please contact: [phone] * Full Code (Latest Code Status on File) Date Activated Date Inactivated Comments 12/05/2022 1:36 PM 12/05/2022 7:25 PM Care Teams Erecting Crane Operator Relationship Specialty Start Date End Date Jeana Wilburn MD PCP - General 12/10/17
--- OUTSIDE RECORDS SUMMARY | 2025-10-21 07:43 | XMS_ITS | Clinical Summary ---
Author Organization [facility] Address [address] [place] [address] Care Team Providers Care Vacuum Tank Tender Name Role Phone Jeana Wilburn MD Primary Care Provider [phone] Source Comments [facility],non-owned Affiliates and Associated Physician Practices is amultiple site organization consisting of ambulatory clinics and hospital sitesin [place], [place] and [place]. This disclosure is being madepursuant to the Care Everywhere program and may not contain all information available regarding this patient. 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 Gender Identity Not on file Sexual Orientation [...] of 3 - 19+ 3-dose series) 1990 PAP SMEAR 1992 Cervical Cancer Screening 2001 PAP with HPV 2001 PNEUMOCOCCAL VACCINE 50+ (1 of 1 - PCV) 2021 ZOSTER VACCINE (1 of 2) 2021 SCREENING FOR DIABETES 10/03/2021 8, 10/03/2018, 09/29/2017, Additional history exists LIPID TESTING 10/04/2023 10/04/2018, 07/2017, 06/02/2017 DEPRESSION SCREENING 12/01/2024 COVID-19 VACCINE ( season) 2025 INFLUENZA VACCINE (#1) 2025 0, 10/09/2019, 09/16/2018, Additional history exists HIB VACCINE [...] Comments LIPID PROFILE STAT 10/04/2018 2:53 AM BEAM SEALER Vision loss BASIC METABOLIC PANEL (CALCIUM TOTAL) STAT 10/03/2018 7:43 PM CDT from Last 3 Months or Most Recently Relevant to Health Maintenance Results * LIPID PROFILE (10/04/2018 2:53 AM [facility]) Cholesterol Total 164 <200 mg/dL 10/04/2018 3:18 AM [facility] HDL 54 >40 mg/dL 10/04/2018 3:18 AM [facility] Comment: ATP III Classification of HDL Cholesterol: <40 mg/dL: Considered a major risk factor. >60 mg/dL: Considered a negative risk factor. LDL Calculated 94 <100 mg/dL 10/04/2018 3:18 AM [facility] Comment: ATP III Classification of LDL Cholesterol: <100 mg/dL: Optimal 100 - 129 mg/dL: Near Optimal/Above Optimal 130 - 159 mg/dL: Borderline High 160 - 189 mg/dL: High >190 mg/dL: Very High Triglycerides 82 <150 mg/dL 10/04/2018 3:18 AM [facility] Comment: ATP III Classification of Triglycerides: <150 mg/dL: Normal 150 - 199 mg/dL: Borderline High 200 - 400 mg/dL: High >500 mg/dL: Very High Blood BLOOD SPECIMEN / Unknown Venipuncture / Unknown 10/04/2018 2:53 AM BEAM SEALER 10/04/2018 2:56 AM BEAM SEALER us Bulmaro Orantes MD LAB - CHEMISTRY ORDERABLE S Final Result [address] [phone] * (ABNORMAL) BASIC METABOLIC PANEL (CALCIUM TOTAL) (10/03/2018 7:43 PM T) BUN 16 7 - 26 mg/dL 10/03/2018 8:15 PM [facility] Creatinine 1.0 0.6 - 1.2 mg/dL 10/03/2018 8:15 PM [facility] Sodium 139 136 - 145 mmol/L 10/03/2018 8:15 PM [facility] Potassium 3.6 3.5 - 4.5 mmol/L 10/03/2018 8:15 PM [facility] Chloride 104 98 - 107 mmol/L 10/03/2018 8:15 PM [facility] CO2 25 22 - 29 mmol/L 10/03/2018 8:15 PM [facility] Glucose 88 70 - 115 mg/dL 10/03/2018 8:15 PM [facility] Calcium 9.1 8.4 - 10.2 mg/dL 10/03/2018 8:15 PM [facility] Anion Gap 14 8 - 18 10/03/2018 8:15 PM [facility] BUN/Creatinine Ratio 16 7 - 23 10/03/2018 8:15 PM [facility] Osmolality Calculated 289 270 - 300 mOsm/kg 10/03/2018 8:15 PM [facility] eGFR 59(L) >60 mL/min/1.7 3 m2 10/03/2018 8:15 PM [facility] Blood BLOOD SPECIMEN / Unknown Venipuncture / Unknown 10/03/2018 7:43 PM CDT 10/03/2018 7:50 PM CDT us Marty Shultz MD LAB - CHEMISTRY [place]AB[place] [address], [facility] [phone] from Last 3 Months or Most Recently Relevant to Health Maintenance Insurance [facility] Address: [facility] [id number] [place] [address] ANTH Advance Directives * Full Code (Latest Code Status on File) Date Activated Date Inactivated Comments 10/04/2018 2:13 AM 10/04/2018 12:33 PM * Full Code Date Activated Date Inactivated Comments 10/03/2018 9:27 PM 10/04/2018 2:13 AM Care Teams Vacuum Tank Tender Relationship Specialty Start Date End Date Jeana Wilburn MD [address] [place] [address] PCP - General 03/19/18
--- OUTSIDE RECORDS SUMMARY | 2025-10-21 07:43 | XMS_ITS | Encounter Summary ---
Author Organization [facility] Address [address] [place] [address] Phone Care Team Providers Care Supervisor Lace Tearing Name Role Phone Jeana Wilburn MD Primary Care Provider + Encounter Details Date Type Department Care Team (Late st Contact Info) Description 10/30/2018 Ophth Exam [facility] Medicine Ophthalmology [address] [place] [address] 1st [place] [address] Radha Benítez MD [address] [place], [place] [id number] Social History Tobacco Use Types Packs/Day Years Used Date Smoking Tobacco: Never Assessed Comments Unknown Sex and Gender Information Value Date Recorded Sex Assigned at Not on file 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
--- OUTSIDE RECORDS SUMMARY | 2025-10-21 07:44 | XMS_ITS | Clinical Summary ---
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 Gender Identity Not on file Sexual Orientation [...] (1 of 2) 2021 COVID-19 Vaccine (3 2024-2 6 season) 2025 01/02/2021, 12/05/2020 Influenza Adult (#1) 2025 10/10/2020, 09/16/2018 DTaP, Tdap and Td Vaccines ( 2 - Tdap) 11/06/2030 11/06/2020 Hepatitis A Vaccines Aged Out No long er eligible based on patient's age to complete this topic Meningococcal B Vaccine Aged Out No l onger eligible based on patient's age to complete this topic Meningococcal Vaccine Aged Out No maryse griselda eligible based on patient's age to complete this topic RSV Immunizations Under 20 Months Aged Out No longer eligible b ased on patient's age to complete this topic
== END 2025-10-20 07:01 | disposition home or self-care (01) ==
LOC: ANHLAB 10-21 07:41
PROVIDERS: PCP Family Medicine; Visit Provider Family Medicine
DX: D49.2 Neoplasm of unspecified behavior of bone, soft tissue, and skin (principal)
CPT/HCPCS: 88305

== ENCOUNTER 2025-11-23 07:16 | Outpatient (CLI) | payer OTHER, SELFPAY ==
--- NOTE | ~2025-11-23 | US_ITS ---
US abdomen limited INDICATION: Abnormal blood chemistries PROCEDURE: Realtime right upper abdominal ultrasound. COMPARISON: No prior studies for comparison. FINDINGS: The pancreas is normal without focal mass or pancreatic ductal dilation. Liver echotexture is normal without focal mass or intrahepatic biliary dilatation. There is normal directional flow in the portal vein. Gallbladder is surgically absent. Common bile duct measures 3 mm. No sonographic Vasquez's sign. IMPRESSION: 1: Unremarkable limited abdominal ultrasound. Reviewed, dictated and finalized at location O. TUMBLER
--- NOTE | ~2025-11-23 | DEXA_ITS ---
Bone Density Report Name: SHANI BUSH Age: 55 Sex: Female Ethnicity: White Date of : 1970 Indication: postmenopausal; screening for osteoporosis; hysterectomy; Referring Provider: SABINO WYATT Study: Bone densitometry was performed. Exam Date: November 23, 2025 Accession number: [id number] Bone Density: Region BMD T-score Z-score Classification AP Spine(L1, L2, L3) 1.031 0.1 1.1 Normal Femoral Neck (Left) 0.833 -0.1 0.9 Normal Total Hip (Left) 0.956 0.1 0.8 Normal Femoral Neck (Right) 0.781 -0.6 0.4 Normal Total Hip (Right) 0.937 0.0 0.6 Normal Total Hip Mean 0.947 0.1 0.7 Normal World Health Organization criteria for BMD impression classify patients as: Normal (T-score at or above -1.0), Osteopenia (T-score between -1.0 and -2.5), or Osteoporosis (T-score at or below -2.5). Clinical Information Provided by Patient: Has used the following medications: Vitamin D, Calcium Has the following medical conditions: Hysterectomy Patient maximum height was 66 Menopause Age: 49 No regular weight bearing exercise Drinks caffeinated beverages Onset of menses at age 14 Number of children 2 Impression: The patient has normal bone mass. Discussion: BONE DENSITY IS ABOVE THE MINIMUM DESIRABLE LEVEL AT ALL SKELETAL SITES TESTED. This patient?s bone mineral density is above the minimum desirable level (T-score -1.0 or better) at all sites measured. The patient should follow a healthful lifestyle (good nutrition with adequate calcium and vitamin D, and appropriate weight-bearing exercise). Follow-Up: Consider repeating this study in 5 years or sooner if there is some new clinical indication. Reported by: LIVE on 11/23/2025 8:00:00 AM. Reviewed, dictated and finalized at location A.
== END 2025-11-23 07:17 | disposition home or self-care (01) ==
PROVIDERS: PCP Family Medicine; Visit Provider Family Medicine
DX: R79.89 Other specified abnormal findings of blood chemistry (principal); Z78.0 Asymptomatic menopausal state
CPT/HCPCS: 76705; 77080